=== PATIENT | female | born 1970 | race Caucasian/White ===

== ENCOUNTER → 2020-09-03 01:18 | Outpatient (CLI) | payer OTHER, SELFPAY ==
[2020-09-03 19:37] LABS: SARS-CoV-2 RNA PCR Negative
== END ==
PROVIDERS: Visit Provider Obstetrics & Gynecology
DX: Z01.812 Encounter for preprocedural laboratory examination (principal); Z20.822 Contact with and (suspected) exposure to COVID-19
CPT/HCPCS: C9803; U0003; U0005

== ENCOUNTER 2020-09-07 13:39 | Inpatient (IN) | payer OTHER, SELFPAY ==
[2020-08-26 14:00] VITALS: BMI 30.5
--- NOTE | 2020-09-06 22:41 | PM.IMHP ---
H&P: HPI History of Present Illness Date/Time: She was seen in April for pap smear and on exam her uterus and ovaries palpated enlarged. Subsqwent ultrasound was ordered. She was informed that the ultrasound showed multicystic growths in the adnexa. She had a subsequent MRI to better delinieate the cysts. She also had a ca125 which was normal. The MRI showed that the growths are mostly large cyst 6.7 cm on right and 5.9 cm on the left. The is a smaller simple appearing cyst 2.3 cm that has a nodule in the center. I explained to her that it looks like large ovarian cyst or could also be paratubal cyst. Usually if the cyst were malignant you would expect the Ca125 level to be higher. A normal ca125 level does not guarantee that the growth is not cancerous. The only definitive way to find out is to remove the cyst through laparoscopy or laparotomy. She was informed that since they appear benign she does have the option of taking a progesterone only control pill which may help to shrink the cyst. This is usually given for 6-8 weeks and if no change in cyst then recommended for surgical removal. This may also decrease menstrual flow. She has not had intermenstrual bleeding. She was informed the cyst is the cause of the the pains she was having in the lower abdomen. Discussed diagnostic laparoscopy and risk and benefits which is her option also versus trying control pills for six weeks and then repeating ultrasound and if not resolved or improving then proceed with laparoscopy. She opted to try control pills. She took Slynd for several packs and repeat ultrasound was performed. The cyst were unchanged. She was recommend for laparoscopic removal. She is aware that it looks like ovaries consist mostly of the cyst and unlikely would be able to save the ovaries. She does not want the chance of ovarian cyst returning and since she is premenopausal she desires both ovaries to be removed. She was made aware of removing both ovaries may also decrease future risk of ovarian cancer and she desires removal of both fallopian tubes also. She is aware if any malignant changes with subsequent pathology that she will need further treatment. Chief Complaint: Bilateral ovarian cyst. Review of Systems Review of Systems: All systems reviewed & are unremarkable except as noted in HPI and below Cardiovascular: Cardiovascular: Reports no additional cardiovascular complaints, Denies chest pain and Denies dyspnea Respiratory: Respiratory: Reports no additional respiratory complaints and Denies dyspnea Gastrointestinal: Gastrointestinal: Reports abdominal pain, Denies change in bowel habits, Denies diarrhea, Denies nausea and Denies vomiting Genitourinary: Genitourinary: Reports pelvic pain Musculoskeletal: Musculoskeletal: Reports back pain Integumentary/Breasts: Skin/Breast: Reports system reviewed and no additional complaints, except as docu Neurologic: Reports system reviewed and no additional complaints, except as documented PMFSH Past Medical History Medical History Hypertension Vaginal delivery x3 Surgical History Surgical History History of cholecystectomy [place] teeth removed Family History Family History Mother Hypertension Father Family history of diabetes mellitus in first degree relative Family history of coronary artery disease Daughter Autism Social History Social History Smoking packs per day: 0.5 Smoking cigarettes per day: 10.0 Years smoked: 15 Smoking pack-years: 7.50 Smoking status: Former smoker Tobacco type: cigarettes and e-cigarettes/vaping Second hand tobacco smoke exposure: No Additional smoking assessment comments: CIGARETTES - QUIT 04/01/10, VAPING QUIT 05/30/20 Alcohol intake: current
[2020-09-07] VITALS (19 sets, daily range): BP systolic 89–135; BP diastolic 47–87; PULSE 72–82; RESP 14–20; TEMP 36.1–37.1; O2SAT 94–100
--- NOTE | 2020-09-07 07:22 | P.PNAN_ITS ---
Anes - Initial Pre Proc Eval Procedure: Operation Date: 09/07/20 09:00 Proposed Procedures p Laparoscopic Bilateral Salpingo Oophorectomy - Ethan Waterman MD Date/Time: 09/07/20 07:22 Surgeon: Ethan Waterman MD Pre Op Diagnosis: bilateral adnexal cyst Patient Data Age: 49 Gender: F Height: 5 ft 7 in Weight: 88.45 kg Allergies Allergy/AdvReac Type Severity Reaction Status Date / Time No Known Allergies Allergy Mild Verified 08/26/20 13:58 Home Medications Medication Instructions Recorded Confirmed Type cholecalciferol (vitamin D3) 10 10 mcg PO DAILY 04/21/20 08/26/20 History mcg (400 unit) capsule coenzyme Q10 75 mg capsule 75 mg PO DAILY 04/21/20 08/26/20 History escitalopram oxalate 20 mg tablet 20 mg PO DAILY 04/21/20 08/26/20 History hydrochlorothiazide 12.5 mg capsule 12.5 mg PO DAILY 04/21/20 08/26/20 History lisinopril 5 mg tablet 5 mg PO DAILY 04/21/20 08/26/20 History multivitamin,oi-rvuo-qnngcwqs 1 tablet PO DAILY 04/21/20 08/26/20 History Patient hx anesthesia problems: post op nausea/vomiting Family hx anesthesia problems: none PMFSH Past Medical History Medical History Anxiety Depression Hypertension Vaginal delivery x3 Surgical History Surgical History History of cholecystectomy [place] teeth removed Family History Family History Mother Hypertension Father Family history of diabetes mellitus in first degree relative Family history of coronary artery disease Daughter Autism Social History Social History Smoking packs per day: 0.5 Smoking cigarettes per day: 10.0 Years smoked: 15 Smoking pack-years: 7.50 Smoking status: Current every day smoker Tobacco type: e-cigarettes/vaping Second hand tobacco smoke exposure: No Additional smoking assessment comments: CIGARETTES - QUIT 04/01/10, VAPING QUIT 05/30/20 Alcohol intake: current Alcohol use details: RARE Substance use: never Substance use type: does not use Living arrangements: with family Spiritual care concerns: No Anes - Eval Final PreProcedure Day of Procedure 09/07/20 07:22 Patient weight: obese Heart: regular rate and rhythm Lungs: decreased breath sounds Airway: Mallampati scale class II Neurological: alert and oriented Last oral intake: >/= 8 hours ASA classification: III Emergent: no Anesthetic plan: proceed Anesthesia type and monitoring: general ETT and standard monitoring Informed Consent: The patient's anesthetic plan and its attendant risks and benefits were discussed with the patient/family/POA. Questions were solicited and answers provided to the satisfaction of the patient/family/POA.
[2020-09-07] MEDS: ACETAMINOPHEN 500 MG TABLET 1000 MG PO (08:07)
[2020-09-07] MEDS: SCOPOLAMINE 1.5 MG PATCH TRANSDERM (08:09)
--- NOTE | 2020-09-07 08:09 | WPDHPUPDATE1 ---
History and Physical Update Update Date/Time: 09/07/20 08:09 History and Physical has been reviewed, including an updated exam of the patient. There are NO changes in the patient's condition. Risks, benefits, and alternatives have been discussed and questions answered. Patient agrees to proceed with procedure.
[2020-09-07] MEDS: LACTATED RINGERS 1,000 ML 30 ML IV CONT ×3 (08:10→12:31)
[2020-09-07] MEDS: KETOROLAC 15 MG/ML VIAL (*BKC) IV PUSH (08:11)
[2020-09-07] MEDS: ceFAZolin SODIUM 1 GM VIAL 2 GM IV PUSH (08:40)
[2020-09-07] MEDS: BUPIVACAINE HCL 0.5% PF 30 ML VIAL 10 ML INFILTRATE (08:47)
--- NOTE | 2020-09-07 09:18 | SUR.OPER ---
Laparoscopic to open laparotomy 09
--- NOTE | 2020-09-07 11:03 | SUR.PREOP ---
Addendum entered by Sherri Alatorre RN 09/07/20 11:07: DISREGARD NOTE---ENTERED IN ERROR ON WRONG PT. Original Note: 1045-PT AND MOM AWARE SURGEON DELAYS SELF WITH PREVIOUS CASE-UNDETERMINED AMOUNT OF TIME NO LESS THAN 45-60 MINUTES. PT AWARE TO [facility] STAFF FOR ANY NEEDS INCLUDING MEDICATION FOR ANXIETY-DENIES NEED AT THIS TIME. 1050-REPORT GIVEN TO Michael CISNEROS RN.
[2020-09-07 11:05] LABS: Hematocrit 35.5 % (37.0-47.0); Hemoglobin 11.3 g/dL (12.0-15.0); Mean Corpuscular HGB Conc 31.8 g/dl (32-36); Mean Corpuscular Volume 87.9 fl (80-100); Mean Platelet Volume 10.2 fl (7.4-10.4); Platelet Count Result 252 k/mm3 (150-375); Red Blood Count 4.04 M/mm3 (4.2-5.4); Red Cell Distribution Width 14.1 % (11.5-14.5); White Blood Count 21.4 K/mm3 (4.5-10.0)
--- NOTE | 2020-09-07 11:11 | SUR.OPER ---
See anesthesia chart for change in left arm abduction intraop - aware patient had preexisting left shoulder soreness
[2020-09-07 11:16] LABS: INR 1.4; Prothrombin Time 17.8 Seconds (11.1-14.7)
[2020-09-07 11:17] LABS: Partial Thromboplastin Time 36.5 SECONDS (22.3-36.8)
[2020-09-07] MEDS: METHYLENE BLUE 0.5% INJ 10 ML AMPULE 5 ML IRRIGATION (11:54)
--- NOTE | 2020-09-07 12:25 | W.PM.PROC2 ---
Procedure Note - Detailed Date of Procedure 09/08/20 Pre-op Diagnosis 1.bilateral adnexal cyst 2.Pelvic pain. Post-op Diagnosis other (1. Pelvic adhesive disease Severe 2. Probable endometriosis.) Procedure Performed 1. Diagnostic laparoscopy 2. Abdominal supracervicalhysterectomy with bilateral salpingo oophorectomy with removal of adnexal cyst which comprised what looked like endometriomas on both sides and also a right paratubal cyst. 3. Lysis of adhesions 4. Cystoscopy Surgeon Ethan Waterman MD [employer] Dr. Bianca Stanley Anesthesia general Indications patient with a history of complex ovarian cyst that were present on ultrasound in April and did not resolve with control pills. She also has pelvic pain that did improve on the control pills. Patient was recommended for removal of the complex cyst and since she is in the menopause range she did not want the possibility of any type this is recurring and wanted both her ovaries removed at the same time. She was also informed of decreased risk of ovarian cancer when the fallopian tubes tubes are removed. Findings on laparoscopy the right and left ovary were severely adhesed to the uterus on both sides and also adhesed to the rectal area. There were multiple what appeared to be paratubal cyst on the right side. The left ovary was enlarged. The left ovary was entered during the dissection and there was noted to be a large amount of dark chocolate fluid this was also seen on the right ovary with the lysis of adhesions from the uterus. Description of Procedure after informed consent was obtained patient was taken to the operating room and general endotracheal anesthesia was administered she was placed in low lithotomy position. An exam under anesthesia was performed there was bilateral adnexal fullness. She was prepped and draped in sterile fashion. Attention was turned to the vagina speculum was inserted single-tooth tenaculum placed on the anterior lip of the cervix the os was mildly scarred. The acorn uterine manipulator was inserted into the cervical canal. The attention was then turned to the abdomen and a vertical skin incision was made at the umbilicus a Veress needle was inserted confirmation into the abdomen was obtained with free flow of fluid through the Veress needle and normal peritoneal pressures. A pneumoperitoneum of 15 mm per mercury was obtained. She was placed in Trendelenburg position. Attention was turned to the left side of the abdomen 5 cc of 1% lidocaine was injected at the site in abdomen and a 5 mm port was inserted under laparoscopic visualization. Attention was turned to the right side of the abdomen and 1% lidocaine was injected at the subcutaneous tissue and a 10 mm port was inserted under laparoscopic visualization. The pelvic organs were visualized. The left ovary was enlarged and the right ovary was adhesed to the right uterus. The left ovary had some adhesions to the lower colon. The uterus appeared normal. The adhesions were densely adhered to the surrounding tissue and therefore the decision was made to do a laparotomy and removal of the adnexa. The laparoscoped was removed and the ports were removed. Patient was taken out of Trendelenburg position a Pfannenstiel skin incision was made with the scalpel the subcutaneous tissue was dissected down with cautery to the fascia fascia was incised in the midline and extended bilaterally with Willson scissors fascia was from rectus muscle superiorly and inferiorly bluntly and sharply. The midline was identified and entered bluntly the pelvic organs were visualized. The laps were placed on the muscle bellies and the intestines were packed out of the sidewall with laps a Dorsey for retractor was then placed. And A no other lap was placed in to retract the middle intestinal tissue. Attention was turned to the right ovary and the dense adhesions to the uterus and the colon were gently lysed. She di
[2020-09-07] MEDS: fentaNYL CITRATE INJ (*CRX) 100 MCG/2 ML VIAL 25 MCG IV PUSH ×8 (12:45→13:47)
[2020-09-07] MEDS: DEXTROSE 5%/0.45% SOD CHL 1,000 ML 125 ML IV CONT ×2 (15:05→23:15)
[2020-09-07] MEDS: MORPHINE SULFATE (*CRX) 4 MG/ML INJ IV PUSH (15:12)
[2020-09-07] MEDS: FENTANYL 600MCG/NS30MLPCA(*CRX 600 MCG/30 ML PCA.VIAL IV CONT (15:25)
--- NOTE | 2020-09-07 15:44 | OBPPTRN ---
Patient transferred to post room #289 via bed. Oriented to unit, room, information board, admission packet and security measures. Patient verbalizes understanding.
[2020-09-07 17:59] LABS: Hemoglobin 10.9 g/dL (12.0-15.0); Mean Corpuscular Hemoglobin 28.5 pg (26-34); Mean Corpuscular Volume 86.2 fl (80-100); Mean Platelet Volume 10.2 fl (7.4-10.4); Platelet Count Result 252 k/mm3 (150-375); Red Blood Count 3.83 M/mm3 (4.2-5.4); Red Cell Distribution Width 14.2 % (11.5-14.5); White Blood Count 24.3 K/mm3 (4.5-10.0)
[2020-09-08] VITALS (7 sets, daily range): BP systolic 98–115; BP diastolic 54–64; PULSE 66–87; RESP 16–20; TEMP 36.7–36.9; O2SAT 98–100
[2020-09-08 05:45] LABS: Basophils Percent Auto 0.2 % (0.2-1.2); Hematocrit 28.6 % (37.0-47.0); Hemoglobin 9.2 g/dL (12.0-15.0); Immature Granulocyte Percent A 0.5 % (0-0.5); Lymphocytes Absolute Auto 1.75 K/mm3 (0.9-3.2); Lymphocytes Percent Auto 9.4 % (18.3-44.2); Mean Corpuscular HGB Conc 32.2 g/dl (32-36); Mean Corpuscular Hemoglobin 28.5 pg (26-34); Mean Corpuscular Volume 88.5 fl (80-100); Mean Platelet Volume 10.4 fl (7.4-10.4); Monocytes Absolute Auto 1.1 K/mm3 (0.1-0.6); Monocytes Percent Auto 6.1 % (2.6-8.5); Neutrophils Absolute Auto 15.6 K/mm3 (1.3-6.7); Neutrophils Percent Auto 83.8 % (45.5-73.1); Platelet Count Result 233 k/mm3 (150-375); Red Blood Count 3.23 M/mm3 (4.2-5.4); Red Cell Distribution Width 14.5 % (11.5-14.5); White Blood Count 18.6 K/mm3 (4.5-10.0)
[2020-09-08 05:56] LABS: Anion Gap 7 mmol/L (8-16); Blood Urea Nitrogen 8 mg/dL (7-17); Calcium 7.9 mg/dL (8.4-10.2); Carbon Dioxide 25 mmol/L (22-30); Chloride 104 mmol/L (98-107); Estimated CRCL calculation 109 ml/min; Estimated Glomerular Filt Rate > 60; Glucose 135 mg/dL (65-105); Potassium 3.6 mmol/L (3.4-5.0); Sodium 136 mmol/L (137-145)
--- NOTE | 2020-09-08 07:37 | WPDANESPN ---
Anes - Prog Note Post-Op Date/Time: 09/08/20 07:37 Cardiovascular status: normal Respiratory status: normal Airway patency: baseline Mental status: baseline Post-Op hydration status: normal Vital Signs: Last Vital Signs Temp 98.1 F 09/08/20 03:40 Pulse 74 09/08/20 03:40 Resp 16 09/08/20 05:30 BP 99/58 L 09/08/20 03:40 Pulse Ox 98 09/08/20 05:30 Pain Score (VAS): 10 I/O: Intake & Output 09/07/20 09/07/20 09/08/20 15:59 23:59 07:59 Intake Total 3700 1150 166.65 Output Total 385 250 475 Balance 3315 900 -308.35 Laboratory Tests 09/08/20 05:25 09/08/20 05:25 09/07/20 09/07/20 09/07/20 10:45 10:45 10:45 WBC 21.4 H RBC 4.04 L Hgb 11.3 L Hct 35.5 L MCV 87.9 MCH 28.0 MCHC 31.8 L RDW 14.1 Plt Count 252 MPV 10.2 Immature Gran % (Auto) Neut % (Auto) Lymph % (Auto) [place] % (Auto) Eos % (Auto) Baso % (Auto) Lymph # (Auto) [place] # (Auto) Eos # (Auto) Baso # (Auto) Abs Immat Gran (auto) Absolute Neuts (auto) Absolute Nucleated RBC Nucleated RBC % PT 17.8 H INR 1.4 APTT 36.5 Sodium Potassium Chloride Carbon Dioxide Anion Gap BUN Creatinine Estim Creat Clear Calc Estimated GFR Glucose Calcium Blood Type O Positive Antibody Screen Negative 09/07/20 09/08/20 09/08/20 17:35 05:25 05:25 WBC 24.3 H 18.6 H RBC 3.83 L 3.23 L Hgb 10.9 L 9.2 L Hct 33.0 L 28.6 L MCV 86.2 88.5 MCH 28.5 28.5 MCHC 33.0 32.2 RDW 14.2 14.5 Plt Count 252 233 MPV 10.2 10.4 Immature Gran % (Auto) 0.5 Neut % (Auto) 83.8 H Lymph % (Auto) 9.4 L [place] % (Auto) 6.1 Eos % (Auto) 0.0 Baso % (Auto) 0.2 Lymph # (Auto) 1.75 [place] # (Auto) 1.1 H Eos # (Auto) 0.0 Baso # (Auto) 0.0 Abs Immat Gran (auto) 0.10 H Absolute Neuts (auto) 15.6 H Absolute Nucleated RBC 0.0 Nucleated RBC % 0.0 PT INR APTT Sodium 136 L Potassium 3.6 Chloride 104 Carbon Dioxide 25 Anion Gap 7 L BUN 8 Creatinine 0.60 L Estim Creat Clear Calc 109 Estimated GFR > 60 Glucose 135 H Calcium 7.9 L Blood Type Antibody Screen Post-procedural complaints: none Patient Feedback: Patient satisfied with anesthetic care.
--- NOTE | 2020-09-08 09:33 | PM.GYNPNOP ---
LABORATORY EQUIPMENT CLEANER - A/P Postoperative Procedures: Procedures Operation Date: 09/07/20 09:00 Actual Procedure Side Surgeon p Diagnostic Laparoscopy ,Open Laparotomy with Supracervical Hysterectomy and Bilateral Salpingo Oophorectomy with Cystoscopy Bilateral Ethan Waterman MD Time Spent With Patient Time: Total time spent is greater than 50% in coordination of care (as documented) at patient's floor/unit and/or counseling patient: Time with patient: less than 15 minutes LABORATORY EQUIPMENT CLEANER- PN:Subj Post-Op Subjective Date/time seen: 09/07/20 1630 Patient alert. Pain controlled. Discussed her surgery with her and . Continue COMPOSITION TILE LAYER and post op care. LABORATORY EQUIPMENT CLEANER - PN: Obj Data Vital Signs Vital Signs: Vital Signs - 24 hr 09/07/20 12:18 09/07/20 12:30 09/07/20 12:45 Temperature 97.5 F L Pulse Rate 76 72 73 Respiratory Rate 14 14 14 Blood Pressure 95/50 L 89/47 L 104/54 L Pulse Oximetry 100 100 100 09/07/20 13:00 09/07/20 13:15 09/07/20 13:30 Temperature Pulse Rate 73 76 76 Respiratory Rate 14 14 14 Blood Pressure 93/56 L 99/56 L 100/58 L Pulse Oximetry 98 94 96 09/07/20 13:45 09/07/20 14:00 09/07/20 14:15 Temperature 97.7 F Pulse Rate 76 81 82 Respiratory Rate 14 14 14 Blood Pressure 100/65 93/52 L 96/58 L Pulse Oximetry 95 97 97 09/07/20 14:25 09/07/20 14:30 09/07/20 15:25 Temperature 97.9 F Pulse Rate 80 Respiratory Rate 18 18 Blood Pressure 104/63 Pulse Oximetry 98 98 98 09/07/20 16:30 09/07/20 17:30 09/07/20 18:30 Temperature Pulse Rate Respiratory Rate 16 16 16 Blood Pressure Pulse Oximetry 96 98 97 09/07/20 20:00 09/07/20 20:30 09/07/20 22:00 Temperature 98.7 F Pulse Rate 81 Respiratory Rate 16 16 16 Blood Pressure 100/57 L Pulse Oximetry 97 97 98 09/08/20 00:00 09/08/20 02:00 09/08/20 03:40 Temperature 98.4 F 98.1 F Pulse Rate 73 74 Respiratory Rate 16 16 16 Blood Pressure 98/57 L 99/58 L Pulse Oximetry 100 98 98 09/08/20 05:30 Temperature Pulse Rate Respiratory Rate 16 Blood Pressure Pulse Oximetry 98 Intake/Output Intake/Output: Intake & Output 09/05/20 09/06/20 09/07/20 09/08/20 23:59 23:59 23:59 23:59 Intake Total 4850 166.65 Output Total 635 475 Balance 4215 -308.35 Meds/Results Medications: Active Medications Generic Name Dose Route Start Last Admin Trade Name Freq PRN Reason Stop Dose Admin Hydrocodone Bitart/Acetaminophen 2 tab 09/08/20 07:56 Hydrocodone/Acetaminophen (*Crx) 5-325 Mg Tablet PO Q4H PRN Pain Rated 4-6 Dextrose/Sodium Chloride 1,000 mls @ 125 mls/hr 09/07/20 13:40 09/07/20 23:15 Dextrose 5% Sodium Chloride 0.45% IV CONT 125 mls/hr .Q8H TYSON Administration Acetaminophen 1,000 mg in 100 mls @ 400 mls/hr 09/07/20 18:00 09/08/20 08:13 Ofirmev 1,000 Mg Ivpb IVPB 09/08/20 18:01 400 mls/hr Q6H TYSON Administration Ibuprofen 600 mg 09/08/20 07:56 Ibuprofen 600 Mg Tablet PO Q6H PRN Cramping Morphine Sulfate 4 mg 09/07/20 14:58 09/07/20 15:12 Morphine Sulfate (*Crx) 4 Mg/Ml Inj IV PUSH 4 mg Q4H PRN Administration Pain Rated 7-10 Ondansetron HCl 4 mg 09/07/20 13:39 Ondansetron Inj 4 Mg/2 Ml Vial IV PUSH Q6H PRN Nausea Labs CBC & Chem 7: 09/08/20 05:25 09/08/20 05:25 Labs: Laboratory Results - last 24 hr 09/07/20 09/07/20 09/07/20 10:45 10:45 10:45 WBC 21.4 H RBC 4.04 L Hgb 11.3 L Hct 35.5 L MCV 87.9 MCH 28.0 MCHC 31.8 L RDW 14.1 Plt Count 252 MPV 10.2 Immature Gran % (Auto) Neut % (Auto) Lymph % (Auto) [place] % (Auto) Eos % (Auto) Baso % (Auto) Lymph # (Auto) [place] # (Auto) Eos # (Auto) Baso # (Auto) Abs Immat Gran (auto) Absolute Neuts (auto) Absolute Nucleated RBC Nucleated RBC % PT 17.8 H INR 1.4 APTT 36.5 Sodium Potassium Chloride Carbon Dioxide Anion Gap BUN Creati
--- NOTE | 2020-09-08 09:35 | PM.GYNPNOP ---
HEALTH OFFICER - A/P Assessment and plan (1) Status post hysterectomy with oophorectomy: Code(s): Z90.710 - Acquired absence of both cervix and uterus; Z90.721 - Acquired absence of ovaries, unilateral Status: Acute Assessment and Plan: POD1. She is doing well. Will increase diet to clears. Will DC [place]. Get up in chair and assit with ambulation. Start oral analgesia. Routine post op care. Postoperative Procedures: Procedures Operation Date: 09/07/20 09:00 Actual Procedure Side Surgeon p Diagnostic Laparoscopy ,Open Laparotomy with Supracervical Hysterectomy and Bilateral Salpingo Oophorectomy with Cystoscopy Bilateral Ethan Waterman MD Time Spent With Patient Time: Total time spent is greater than 50% in coordination of care (as documented) at patient's floor/unit and/or counseling patient: Time with patient: less than 15 minutes HEALTH OFFICER- PN:Subj Post-Op Subjective Date/time seen: 09/08/20 09:35 Interval history: She has set up in bed. She denies flatus. She has had a good pain control with the IV pain medicines. Has some reflux symptoms. No leg pain. No chest pain or SOB. She is tolerating ice chips and sips. Subjective: pain is well controlled Review of Systems Review of Systems: All systems reviewed & are unremarkable except as noted in HPI and below Cardiovascular: Cardiovascular: Reports no additional cardiovascular complaints Respiratory: Respiratory: Reports no additional respiratory complaints Gastrointestinal: Gastrointestinal: Reports belching, Denies nausea and Denies vomiting Genitourinary: Genitourinary: Reports no additional female genitourinary complaints Musculoskeletal: Musculoskeletal: Reports no additional musculoskeletal complaints Exam Const: General: comfortable and no acute distress Orientation/consciousness: oriented to person, oriented to place and oriented to time Eyes: General: appearance normal, both eyes and all related structures Resp: Auscultation: clear to auscultation bilaterally Cardio: Rate: regular rate Rhythm: regular rhythm GI: GI Palp: No Tenderness to palpation present (GI) Other: incisions intact clean and dry, +BS throughout, appropriate tenderness Neuro: General: oriented to person, oriented to place and oriented to time Extrem: General: no calf tenderness Psych: Mental Status: mental status grossly normal HEALTH OFFICER - PN: Obj Data Vital Signs Vital Signs: Vital Signs - 24 hr 09/07/20 12:18 09/07/20 12:30 09/07/20 12:45 Temperature 97.5 F L Pulse Rate 76 72 73 Respiratory Rate 14 14 14 Blood Pressure 95/50 L 89/47 L 104/54 L Pulse Oximetry 100 100 100 09/07/20 13:00 09/07/20 13:15 09/07/20 13:30 Temperature Pulse Rate 73 76 76 Respiratory Rate 14 14 14 Blood Pressure 93/56 L 99/56 L 100/58 L Pulse Oximetry 98 94 96 09/07/20 13:45 09/07/20 14:00 09/07/20 14:15 Temperature 97.7 F Pulse Rate 76 81 82 Respiratory Rate 14 14 14 Blood Pressure 100/65 93/52 L 96/58 L Pulse Oximetry 95 97 97 09/07/20 14:25 09/07/20 14:30 09/07/20 15:25 Temperature 97.9 F Pulse Rate 80 Respiratory Rate 18 18 Blood Pressure 104/63 Pulse Oximetry 98 98 98 09/07/20 16:30 09/07/20 17:30 09/07/20 18:30 Temperature Pulse Rate Respiratory Rate 16 16 16 Blood Pressure Pulse Oximetry 96 98 97 09/07/20 20:00 09/07/20 20:30 09/07/20 22:00 Temperature 98.7 F Pulse Rate 81 Respiratory Rate 16 16 16 Blood Pressure 100/57 L Pulse Oximetry 97 97 98 09/08/20 00:00 09/08/20 02:00 09/08/20 03:40 Temperature 98.4 F 98.1 F Pulse Rate 73 74 Respiratory Rate 16 16 16 Blood Pressure 98/57 L 99/58 L Pulse Oximetry 100 98 98 09/08/20 05:30 Temperature Pulse Rate Respiratory Rate 16 Blood Pressure Pulse Oximetry 98 Intake/Output Intake/Output: Intake & Output 09/05/20 09/06/20 09/07/20 09/08/20 23:59 23:59 23:59 23:59 Intake Total 4850 166.65 Output Total 635 475 Balance 4215 -308.35
[2020-09-08] MEDS: HYDROcodone/acetaminophen (*CRX) 5-325 MG TABLET 2 TAB PO ×3 (11:21→20:47)
[2020-09-08] MEDS: FAMOTIDINE 20 MG/2 ML VIAL IV PUSH (11:38)
[2020-09-08] MEDS: IBUPROFEN 600 MG TABLET PO ×2 (15:02→22:05)
[2020-09-08] MEDS: ESCITALOPRAM OXALATE 10 MG TABLET PO (20:47)
[2020-09-09] MEDS: HYDROcodone/acetaminophen (*CRX) 5-325 MG TABLET 2 TAB PO ×4 (00:50→13:11)
[2020-09-09] MEDS: IBUPROFEN 600 MG TABLET PO ×2 (04:52→13:11)
[2020-09-09 08:00] VITALS: BP 113/63; PULSE 72; RESP 18; TEMP 36.6
--- NOTE | 2020-09-09 11:09 | PM.GYNPNOP ---
[employer] - A/P Assessment and plan (1) Status post hysterectomy with oophorectomy: Code(s): Z90.710 - Acquired absence of both cervix and uterus; Z90.721 - Acquired absence of ovaries, unilateral Status: Acute Assessment and Plan: She is doing well. Discharge home today. Discharge precautions discussed. Postoperative Procedures: Procedures Operation Date: 09/07/20 09:00 Actual Procedure Side Surgeon p Diagnostic Laparoscopy ,Open Laparotomy with Supracervical Hysterectomy and Bilateral Salpingo Oophorectomy with Cystoscopy Bilateral Ethan Waterman MD Time Spent With Patient Time: Total time spent is greater than 50% in coordination of care (as documented) at patient's floor/unit and/or counseling patient: Time with patient: less than 15 minutes [employer]- PN:Subj Post-Op Subjective Date/time seen: 09/09/20 11:09 Interval history: She reports adequate pain control. She is ambulating without problems. Tolerating regular food. Positive flatus. No leg pain or chest pain. Subjective: pain is well controlled and patient is tolerating oral intake Review of Systems Review of Systems: All systems reviewed & are unremarkable except as noted in HPI and below Cardiovascular: Cardiovascular: Reports no additional cardiovascular complaints Respiratory: Respiratory: Reports no additional respiratory complaints Gastrointestinal: Gastrointestinal: Denies nausea and Denies vomiting Genitourinary: Genitourinary: Reports no additional female genitourinary complaints Musculoskeletal: Musculoskeletal: Reports no additional musculoskeletal complaints Exam Const: General: comfortable and no acute distress Orientation/consciousness: oriented to person, oriented to place and oriented to time Resp: Effort & Inspection: normal respiratory effort Cardio: Rhythm: regular rhythm GI: GI Palp: Yes Soft to palpation and Yes Tenderness to palpation present (GI) Other: minimal tenderness on palpation Neuro: General: oriented to person, oriented to place and oriented to time Extrem: General: no calf tenderness Psych: Mental Status: mental status grossly normal [employer] - PN: Obj Data Vital Signs Vital Signs: Vital Signs - 24 hr 09/08/20 16:30 09/08/20 20:00 09/09/20 08:00 Temperature 98.2 F 98.4 F 97.8 F Pulse Rate 87 66 72 Respiratory Rate 18 16 18 Blood Pressure 115/61 112/54 L 113/63 Pulse Oximetry 99 Intake/Output Intake/Output: Intake & Output 09/06/20 09/07/20 09/08/20/11/21 23:59 23:59 23:59 23:59 Intake Total 4850 1166.65 Output Total 635 2275 50 Balance 4215 -1108.35 -50 Meds/Results Medications: Active Medications Generic Name Dose Route Start Last Admin Trade Name Freq PRN Reason Stop Dose Admin Hydrocodone Bitart/Acetaminophen 2 tab 09/08/20 07:56 09/09/20 09:39 Hydrocodone/Acetaminophen (*Crx) 5-325 Mg Tablet PO 1 tab Q4H PRN Administration Pain Rated 4-6 Escitalopram Oxalate 10 mg 09/08/20 21:00 09/08/20 20:47 Escitalopram Oxalate 10 Mg Tablet PO 10 mg DAILY TYSON Administration Ibuprofen 600 mg 09/08/20 07:56 09/09/20 04:52 Ibuprofen 600 Mg Tablet PO 600 mg Q6H PRN Administration Cramping Morphine Sulfate 4 mg 09/07/20 14:58 09/07/20 15:12 Morphine Sulfate (*Crx) 4 Mg/Ml Inj IV PUSH 4 mg Q4H PRN Administration Pain Rated 7-10 Ondansetron HCl 4 mg 09/07/20 13:39 Ondansetron Inj 4 Mg/2 Ml Vial IV PUSH Q6H PRN Nausea Labs CBC & Chem 7: 09/08/20 05:25 09/08/20 05:25
--- NOTE | 2020-09-09 11:26 | PM.DS ---
DS: Admitting Diagnosis Admitting Diagnosis Admitting Diagnosis: 1. Persistent symptomatic ovarian cyst DS: Discharge Diagnosis Discharge Diagnosis (1) Ovarian cyst: Code(s): N83.209 - Unspecified ovarian cyst, unspecified side Status: Acute (2) Pelvic adhesive disease: Code(s): N73.6 - Female pelvic peritoneal adhesions (postinfective) Status: Acute (3) Postoperative anemia: Code(s): D64.9 - Anemia, unspecified Status: Acute DS: Summary Hospital Course Reason for hospitalization: Surgery for symptomatic bilateral ovarian cyst with pain and no resolution with trial of control pills. Hospital Course: Patient was admitted on September 07 for planned bilateral salpingo-oophorectomy for persistent ovarian cysts causing pain resistant to change with oral contraceptive pills. She underwent a diagnostic laparoscopy at the time she was known to have severe adhesions of the ovaries fallopian tubes to the uterus and colon and sidewall. A laparotomy was performed and she had a supracervical hysterectomy and bilateral salpingo-oophorectomy. Her EBL was estimated at 1 L though some of this could have been the large amount of either old blood or endometriosis material in the uterus. Her hemoglobin during surgery was 11 in the postop hemoglobin was 9.8. Patient was not symptomatic. Postop day 1. Patient was started on liquids and did well had positive flatus throughout the day tolerated regular food. She tolerated oral pain medicine and was ambulating without any problems on postop day 2 patient was doing well and tolerating regular food adequate pain control and ambulating and was discharged to home. She was given discharge instructions she was given [place] for pain and Toradol. She was instructed to hold on taking her blood pressure medicines which were held in the hospital due to lower blood pressures. She was instructed to take her blood pressures at home and when they started getting 130s over 80s to take the blood pressure medicine. She is instructed to take [id number] iron supplement and also to instructed to take MiraLax. Pelvic rest no driving no straining. She is to follow up with me on her appointment . Status at Discharge Functional status at discharge: independent ambulation Time Spent with Patient Time attestation: Total time spent providing and/or coordinating discharge services: Time spent: Less than 30 minutes Exam Const: General: comfortable and no acute distress Eyes: General: appearance normal, both eyes and all related structures Chest: Chest palpation & inspection: normal inspection of the chest Resp: Effort & Inspection: normal respiratory effort GI: Inspection: normal to inspection and other (incisions clean dry and intact) Skin: General skin exam: normal color Extrem: General: normal to inspection and no calf tenderness Psych: Appearance: grossly normal DS: Data Data Completed and Pending Pending studies at discharge: Pending at discharge 09/07/20 11:23 Surgical [PTH] Routine Discharge Plan Discharge Attending physician on discharge: Ethan Waterman Consulting providers: Shemar Wei Discharging Clinician: Ethan Waterman Anticipated Discharge Date/Time: 09/09/20 11:16 Patient Disposition: Home, Self-Care Activity: may shower, no straining, no driving and pelvic rest Diet: low sodium Discharge Instructions: No lifting. Take prescription pain medication for breakthrough pain. Take Toradol for five days then may take Ibuprofen 600mg every six hours as needed for pain. Take Miralex daily until not taking the [place] pain medication. Call for fever, vaginal bleeding, persistent nausea vomiting. Take blood pressures at home daily. May resume blood pressure medication when blood pressures 130s/80s. Take a daily iron supplement, SloFe which is over the counter. Recommend daily multivitamin. Some Complications to [place]
--- NOTE | 2020-09-09 11:51 | PC.NURSE ---
Discharge instructions given to pt. including when to see Dr. Waterman for follow up visit. Pt. verbalized understanding. No questons or concerns verbalized. Very pleasant and cooperative. at side. Discharge instructions signed.
== END 2020-09-09 13:15 | disposition home or self-care (01) | DRG 742 ==
LOC: ANHOB2 14:43
PROVIDERS: Admitting Provider Obstetrics & Gynecology; PCP Registered Nurse; Visit Provider Obstetrics & Gynecology
PROC: (CPT 49320; principal; 2020-09-07 09:00)
DX: N83.202 Unspecified ovarian cyst, left side (principal); D62 Acute posthemorrhagic anemia; N83.201 Unspecified ovarian cyst, right side; N73.6 Female pelvic peritoneal adhesions (postinfective); I10 Essential (primary) hypertension; F41.9 Anxiety disorder, unspecified; F32.9 Major depressive disorder, single episode, unspecified; E66.9 Obesity, unspecified; Z68.31 Body mass index [BMI] 31.0-31.9, adult; Z90.49 Acquired absence of other specified parts of digestive tract; Z87.891 Personal history of nicotine dependence
CPT/HCPCS: 36415; 80048; 85025; 85027; 85610; 85730; 86850; 86900; 86901; 88307; A9270; J0131; J0330; J0690; J1100; J1170; J1200; J1885; J2250; J2270; J2370; J2405; J2704; J2710; J3010; J7030; J7120; Q9968

== ENCOUNTER 2021-08-21 19:16 | Emergency (ER) | payer OTHER, SELFPAY ==
[2021-08-21] VITALS (14 sets, daily range): BP systolic 136–179; BP diastolic 71–103; PULSE 64–78; RESP 16–20; TEMP 36.5–36.8; O2SAT 96–100
--- NOTE | ~2021-08-21 | CT_ITS ---
EXAMINATION: CT abdomen pelvis w con DATE: 08/21/2021 20:51 INDICATION: abd pain, nausea TECHNIQUE: Computed tomography (CT) of the abdomen and pelvis was performed with 75 mL Omnipaque 300 intravenous contrast. Automated exposure control and iterative reconstruction technique were employed . The dose-length product was 768.84 mGy-cm. COMPARISON: None FINDINGS: Lower thorax: Unremarkable Liver: Diffusely low density. Biliary/Gallbladder: Gallbladder is absent. No bile duct dilation. Pancreas: No mass or duct dilation. Spleen: Normal. Adrenals:No mass. Kidneys: Simple right midpole cyst and nonobstructive punctate calculi. No hydronephrosis GI tract: No small or large bowel dilation. Normal appendix. Diverticulosis without diverticulitis. Mesentery/Peritoneum: No ascites, mass, or free air. Retroperitoneum: No mass. Pelvis: Pelvic organs are within normal limits. Soft Tissues: Soft tissues and body wall unremarkable. Bones: No acute osseous finding. IMPRESSION: Steatosis. No acute abdominopelvic process. Reviewed, dictated and finalized at location K.
--- NOTE | 2021-08-21 19:43 | ED.ABDPAIN ---
HPI - Abdominal Pain General Chief Complaint: Abdominal Pain Stated Complaint: abd pain Time Seen by Provider: 08/21/21 19:26 History of Present Illness HPI narrative: Patient is a 50-year-old female with a history of hypertension, hysterectomy, cholecystectomy, here for evaluation of lower abdominal pain for the past day. Patient states the pain is severe, causing her to double over in discomfort. It is intermittent in nature, and is not present currently. Denies pain after eating. She denies relief after heating pads and Tylenol. Reports nausea, but no vomiting. She does note a similar pain about a month ago, but it was much more mild and resolved without intervention. No diarrhea, constipation, blood in her stools, dysuria, hematuria, vaginal discharge, fevers. She has never had a colonoscopy, but she does report she had a negative FOBT test. Related Data Home Medications Medication Instructions Recorded Confirmed cholecalciferol (vitamin D3) 10 10 mcg PO DAILY 04/21/20 05/05/21 mcg (400 unit) capsule coenzyme Q10 75 mg capsule 75 mg PO DAILY 04/21/20 05/05/21 escitalopram oxalate 20 mg tablet 20 mg PO DAILY 04/21/20 05/05/21 hydrochlorothiazide 12.5 mg capsule 12.5 mg PO DAILY 04/21/20 05/05/21 lisinopril 5 mg tablet 5 mg PO DAILY 04/21/20 05/05/21 multivitamin,ny-hatj-winoulis 1 tablet PO DAILY 04/21/20 05/05/21 Allergies Allergy/AdvReac Type Severity Reaction Status Date / Time No Known Allergies Allergy Mild Verified 08/21/21 19:21 Review of Systems Review of Systems: Gen: Denies fevers or chills Eyes: Denies eye pain or visual change ENT: Denies congestion Respiratory: Denies shortness of breath or cough CV: Denies chest pain or palpitations GI: Reports abdominal pain and nausea. No emesis or diarrhea denies burning, urgency, frequency or hematuria Musculoskeletal: Denies back pain or muscle pain Neuro: Denies numbness, tingling, weakness or focal weakness Skin: Denies rash Except as documented, all other systems reviewed and negative All systems reviewed & are unremarkable except as noted in HPI and below PMFSH Past Medical History Medical History Anxiety Depression Hypertension Vaginal delivery x3 Surgical History Surgical History History of bilateral salpingo-oophorectomy 09/07/20 History of cholecystectomy History of cystoscopy 09/07/20 History of hysterectomy, supracervical 09/07/20, abdominal hysterectomy with removal of adnexal cyst for bilateral endometriomas and right paratubal cyst, lysis of adhesions History of laparoscopy 09/07/20, Diagnostic [place] teeth removed Family History Family History Mother Hypertension Father Family history of diabetes mellitus in first degree relative Family history of coronary artery disease Daughter Autism Social History Social History Smoking packs per day: 0.5 Smoking cigarettes per day: 10.0 Years smoked: 15 Smoking pack-years: 7.50 Smoking status: Former smoker (current vape smoker) Tobacco type: e-cigarettes/vaping Second hand tobacco smoke exposure: No Additional smoking assessment comments: CIGARETTES - QUIT 04/01/10, VAPING QUIT 05/30/20 Alcohol intake: current Alcohol use details: RARE Substance use: never Substance use type: does not use Spiritual care concerns: No Exam Narrative: APPEARANCE: No acute distress, nontoxic, resting in bed EYES: EOMI HEENT: Normocephalic, atraumatic, OMM RESPIRATORY: No respiratory distress Clear to auscultation bilaterally with no rhonchi wheezing or rales. CARDIOVASCULAR: Regular rate and rhythm without murmurs rubs or gallops. ABDOMINAL: Tender to palpation in suprapubic region. No CVA tenderness. Soft, nondistended, no rebound or guarding
[2021-08-21 20:00] LABS: Basophils Absolute Auto 0.1 K/mm3 (0.0-0.1); Basophils Percent Auto 0.4 % (0.2-1.2); Eosinophils Absolute Auto 0.8 K/mm3 (0-0.3); Eosinophils Percent Auto 5.7 % (0-4.4); Hematocrit 41.8 % (37.0-47.0); Hemoglobin 13.5 g/dL (12.0-15.0); Immature Granulocyte Absolute 0.04 K/mm3 (0.00-0.031); Immature Granulocyte Percent A 0.3 % (0-0.5); Lymphocytes Absolute Auto 2.27 K/mm3 (0.9-3.2); Mean Corpuscular HGB Conc 32.3 g/dl (32-36); Mean Corpuscular Hemoglobin 28.2 pg (26-34); Mean Corpuscular Volume 87.4 fl (80-100); Mean Platelet Volume 9.9 fl (7.4-10.4); Monocytes Absolute Auto 0.6 K/mm3 (0.1-0.6); Monocytes Percent Auto 4.8 % (2.6-8.5); Neutrophils Absolute Auto 9.6 K/mm3 (1.3-6.7); Neutrophils Percent Auto 71.8 % (45.5-73.1); Platelet Count Result 278 k/mm3 (150-375); Red Blood Count 4.78 M/mm3 (4.2-5.4); White Blood Count 13.4 K/mm3 (4.5-10.0)
[2021-08-21 20:11] LABS: Alanine Aminotransferase 31 U/L (6-35); Albumin Level 4.1 g/dL (3.5-5.1); Alkaline Phosphatase 74 U/L (38-126); Anion Gap 9 mmol/L (8-16); Aspartate Amino Transferase 34 U/L (14-36); Bilirubin,Total 0.2 mg/dL (0.2-1.3); Blood Urea Nitrogen 15 mg/dL (7-17); Carbon Dioxide 29 mmol/L (22-30); Chloride 103 mmol/L (98-107); Estimated CRCL calculation 94 ml/min; Estimated Glomerular Filt Rate > 60; Glucose 113 mg/dL (65-110); Lipase 57 U/L (23-300); Potassium 3.6 mmol/L (3.4-5.0); Sodium 141 mmol/L (137-145)
[2021-08-21] MEDS: SODIUM CHLORIDE 0.9% IV 1,000 ML 999 ML IV CONT (20:13)
--- NOTE | 2021-08-21 21:20 | PC.NURSE ---
urine preg canceled because pt has hyster 2 years ago
[2021-08-21 22:08] LABS: Appearance Urine Clear (Clear); Bilirubin Urine Negative (Negative); Color Urine Yellow (Yellow); Glucose Urine UA Negative (Negative); Ketones Urine Negative (Negative); Leukocyte Esterase Ur Negative LEU/UL (Negative); Nitrate Urine Negative (Negative); Protein Urine Negative (Negative); Urobilinogen Urine 0.2 mg/dL (<2.0)
[2021-08-21 22:14] LABS: Bacteria Urine Trace /hpf; RBC Urine 0-2 /hpf (0-2); Squamous Epithelial Cell Urine Rare /hpf (Few); WBC Urine 0-3 /hpf
[2021-08-21 22:25] LABS: Add Urine Microscopic? YES; Blood Urine Trace-Intact (Negative)
== END 2021-08-21 22:58 | disposition home or self-care (01) ==
PROVIDERS: Physician Assistant; Emergency Provider Emergency Medicine; PCP Registered Nurse
DX: R10.30 Lower abdominal pain, unspecified (principal); I10 Essential (primary) hypertension; F41.9 Anxiety disorder, unspecified; F32.A Depression, unspecified; Z87.891 Personal history of nicotine dependence
CPT/HCPCS: 36415; 74177; 80053; 81001; 83690; 85025; 96360; 99284; J7030; Q9967

== ENCOUNTER 2023-10-24 11:05 | Outpatient (CLI) | payer OTHER, SELFPAY ==
--- NOTE | ~2023-10-24 | MM_ITS ---
EXAMINATION: MM screening ioana BI w rajni HISTORY: Screening TECHNIQUE: Craniocaudal and mediolateral oblique 3-D tomosynthesis images were obtained and synthetic 2-D images were generated. CAD analysis was submitted and interpreted. COMPARISON: No prior mammogram is available for comparison at this institution. BREAST PARENCHYMAL COMPOSITION: There are scattered areas of fibroglandular density. FINDINGS: There is no evidence of suspicious mass, calcification, or architectural distortion to sugg est malignancy in either breast. There has been no suspicious interval change. IMPRESSION: 1. No mammographic evidence of malignancy. 2. Recommend routine screening mammography in one year. BI-RADS Category 1: Negative Reviewed, dictated and finalized at location B.
== END 2023-10-24 11:06 ==
PROVIDERS: PCP Nurse Practitioner Family; Visit Provider Nurse Practitioner Family
DX: Z12.31 Encounter for screening mammogram for malignant neoplasm of breast (principal)
CPT/HCPCS: 77063; 77067

== ENCOUNTER 2023-11-01 14:26 | Outpatient (CLI) | payer OTHER, SELFPAY ==
--- NOTE | ~2023-11-01 | DEXA_ITS ---
Bone Density Report Name: PUMA LUGO Age: 52 Sex: Female Ethnicity: White Date of : 1970 Indication: postmenopausal; screening for osteoporosis; height loss; hysterectomy; Referring Provider: REFUGIO BARAJAS Study: Bone densitometry was performed. Exam Date: November 01, 2023 Accession number: [id number] Bone Density: Region BMD T-score Z-score Classification AP Spine(L1-L4) 1.223 1.6 2.7 Normal Femoral Neck (Left) 0.894 0.4 1.4 Normal Total Hip (Left) 1.062 1.0 1.6 Normal Femoral Neck (Right) 0.852 0.0 1.1 Normal Total Hip (Right) 1.010 0.6 1.2 Normal Femoral Neck Mean 0.873 0.2 1.3 Normal Total Hip Mean 1.036 0.8 1.4 Normal World Health Organization criteria for BMD impression classify patients as: Normal (T-score at or above -1.0), Osteopenia (T-score between -1.0 and -2.5), or Osteoporosis (T-score at or below -2.5). 10-year Fracture Risk: FRAX not reported because: All T-scores for Spine Total, Hip Total, Femoral Neck at or above -1.0 Clinical Information Provided by Patient: Smokes Has used the following medications: HRT (i.e. estrogen/hormone therapy), Vitamin D, Calcium Has the following medical conditions: Hysterectomy Patient maximum height was 68 Menopause Age: 50 No regular weight bearing exercise Drinks caffeinated beverages Onset of menses at age 8 Number of children 2 Impression: The patient has normal bone mass. The patient has risk factors, including: smoking. Discussion: BONE DENSITY IS ABOVE THE MINIMUM DESIRABLE LEVEL AT ALL SKELETAL SITES TESTED. This patient?s bone mineral density is above the minimum desirable level (T-score -1.0 or better) at all sites measured. The patient should follow a healthful lifestyle (good nutrition with adequate calcium and vitamin D, and appropriate weight-bearing exercise). Follow-Up: Consider repeating this study in 5 years or sooner if there is some new clinical indication. Reported by: Dr. Martin Griffith on 11/01/2023 2:49:00 PM. Reviewed, dictated and finalized at location A. [facility]
== END 2023-11-01 14:27 | disposition home or self-care (01) ==
LOC: CHSIMG 14:28
PROVIDERS: PCP Nurse Practitioner Family; Visit Provider Nurse Practitioner Family
DX: Z78.0 Asymptomatic menopausal state (principal); R29.890 Loss of height
CPT/HCPCS: 77080

== ENCOUNTER 2024-03-27 14:41 | Emergency (ER) | payer OTHER, SELFPAY ==
[2024-03-27 15:06] VITALS: BP 125/73; PULSE 85; RESP 18; TEMP 37.3; O2SAT 98
--- NOTE | 2024-03-27 15:31 | ED_ITS ---
HPI - URI/Sore Throat General Chief Complaint: Upper Respiratory Infection Stated Complaint: Flu like symptoms Time Seen by Provider: 03/27/24 15:31 Source: patient, RN notes reviewed and old records reviewed Mode of arrival: ambulatory Limitations: no limitations History of Present Illness HPI Narrative: 53-year-old female presents to the [facility] with 2 day history of sore throat, body aches, fatigue, headache and cough. Has taken psych am, NyQuil and DayQuil. Onset (ago): day(s) (To) Related Data Home Medications ?Medication ?Instructions ?Recorded ?Confirmed ?Last Taken ?Type cholecalciferol (vitamin D3) 10 10 mcg PO DAILY 04/21/20 05/05/21 09/02/20 History mcg (400 unit) capsule coenzyme Q10 75 mg capsule (Ultra 75 mg PO DAILY 04/21/20 05/05/21 09/02/20 History CoQ10) escitalopram oxalate 20 mg tablet 20 mg PO DAILY 04/21/20 05/05/21 09/06/20 History hydrochlorothiazide 12.5 mg capsule 12.5 mg PO DAILY 04/21/20 05/05/21 09/06/20 History multivitamin,tm-xjtz-hbrlwrrl 1 tablet PO DAILY 04/21/20 05/05/21 09/02/20 History (Complete Multivitamin tablet) bupropion HCl 150 mg tablet,12 hr 150 mg PO DAILY 04/26/23 Unknown History sustained-release (Wellbutrin SR) lisinopril 20 mg tablet 20 mg PO DAILY 04/26/23 Unknown History Allergies Allergy/AdvReac Type Severity Reaction Status Date / Time No Known Allergies Allergy Mild Verified 04/26/23 13:11 Review of Systems Review of Systems: All systems reviewed & are unremarkable except as noted in HPI and below Constitutional: Constitutional: Reports as per HPI and Reports body ache(s) ENT: Reports as per HPI and Reports sore throat Cardiovascular: Cardiovascular: Reports no additional cardiovascular complaints, Denies chest pain and Denies dyspnea Respiratory: Respiratory: Reports as per HPI, Denies chest congestion, Reports cough and Denies dyspnea Musculoskeletal: Musculoskeletal: Reports no additional musculoskeletal complaints Integumentary/Breasts: Skin/Breast: Reports system reviewed and no additional complaints, except as docu PMFSH Past Medical History Medical History Depression Anxiety Vaginal delivery x3 Hypertension Surgical History Surgical History History of cystoscopy 09/07/20 History of bilateral salpingo-oophorectomy 09/07/20 History of laparoscopy 09/07/20, Diagnostic History of hysterectomy, supracervical 09/07/20, abdominal hysterectomy with removal of adnexal cyst for bilateral endometriomas and right paratubal cyst, lysis of adhesions History of cholecystectomy [place] teeth removed Family History Family History Mother Hypertension Father Family history of diabetes mellitus in first degree relative Family history of coronary artery disease Daughter Autism Social History Social History Smoking packs per day: 0.5 Smoking cigarettes per day: 10.0 Years smoked: 15 Smoking pack-years: 7.50 Smoking status: Former smoker (current vape smoker) Tobacco type: e-cigarettes/vaping Second hand tobacco smoke exposure: No Additional smoking assessment comments: CIGARETTES - QUIT 04/01/10, VAPING QUIT 05/30/20 Alcohol intake: current Alcohol use details: RARE Substance use: never Substance use type: does not use Do You Feel Safe in your Home?: Yes Lack of Transportation: YES Lack of Food: Never True Current Housing: I Have Housing Concerned About Future Housing: No Difficulty Paying Gas/Electric Bills: No Difficulty Paying for Meds: No Currently Unemployed: No Education: Bachelor's Degree Difficulty w/ Childcare or Family Care: No Living arrangements: with family Spiritual care concerns: No Comments At the time of my signature, I reviewed and agree with the nursing past medical, surgical, social, and family history. There is no relevant family history pertinent to the patient complaint. Exam Const: General: cooperative, healthy appearing, comfortable, no acute distress, well developed, alert and well nourished Nutritional Appearance: well nourished Orientation/consciousness: patient oriented x3 Limitations: no limitations HENMT: Head: normal to inspection Ears: hearing grossly normal bilaterally, external ears normal, TM's normal bilaterally and no periauricular adenopathy Face/Nose/Sinus: normal facial exam and face symmetric Face and sinus: normal facial exam and face symmetric Mouth: Yes Normal oral and palatal mucosa present, Yes lip normal, Yes tongue normal and Yes moist mucous membranes Throat: posterior oropharynx normal, uvula midline and no uvular edema Eyes: General: appearance normal, both eyes and all related structures Neck: Neck: normal visual inspection, full ROM, no lymphadenopathy and no meningeal signs Chest: Chest palpation & inspection: normal inspection of the chest Resp: Effort & Inspection: normal respiratory effort and able to speak in complete sentences Auscultation: clear to auscultation bilaterally, no crackles, no rales, no rhonchi and no wheezes Cardio: Rate: regular rate Skin: General skin exam: normal color and no rashes or lesions noted Neuro: General: patient oriented x3, gait normal, moves all extremities and no meningeal signs Cognition (Neuro): normal cognition Speech: normal speech Gait exam (Neuro): Normal gait present Extrem: General: normal to inspection, full ROM, capillary refill normal and normal gait Psych: Appearance: grossly normal and well kempt Mental Status: mental status grossly normal Speech and movement: Normal speech and movement present and Clear speech present Affect: normal affect Attitude: cooperative Course Course Level of Care: Express Care Visit Vital Signs Vital signs: Vital Signs Temperature 99.2 F 03/27/24 15:06 Pulse Rate 85 03/27/24 15:06 Respiratory Rate 18 03/27/24 15:06 Blood Pressure 125/73 03/27/24 15:06 Pulse Oximetry 98 03/27/24 15:06 Oxygen Delivery Room Air 03/27/24 15:06 Temperature 99.2 F 03/27/24 15:06 Pulse Rate 85 03/27/24 15:06 Respiratory Rate 18 03/27/24 15:06 Blood Pressure 125/73 03/27/24 15:06 Pulse Oximetry 98 03/27/24 15:06 Oxygen Delivery Room Air 03/27/24 15:06 Reviewed MDM - URI/Sore Throat MDM Narrative Medical decision making narrative: Patient sitting comfortably in exam. Nontoxic, vitals stable. Patient in no acute distress. Patient presents with 2 day history of body aches sore. Daughter is positive influenza. Patient is negative for flu, COVID, strep. Patient is appropriate for outpatient treatment and close follow-up of viral URI, concern for influenza. Discharge instructions reviewed with patient, as well as provided in writing per nursing staff. The instructions also include specific and strict return/GO TO THE ER as well as f/u information. All questions have been answered, and the patient deny any further questions with discharge and discharge plan. Some parts of this dictation were generated by voice recognition software and may contain typographical and/or grammatical inaccuracies. Differential Diagnosis Differential diagnosis: Likely upper respiratory infection, otitis media, sinusitis, viral infection, influenza and pharyngitis Lab Data Labs: Lab Results 03/27/24 03/27/24 Range/Units 15:58 16:03 POC Influenza A Ag Negative (Negative) POC Influenza B Ag Negative (Negative) POC SARS CoV-2 Ag Negative (Negative) POC Grp A Strep Screen Negative (Negative) Reviewed Critical Care Time Critical Care Time Critical Care Time: No Discharge Plan Discharge Clinical Impression: Exposure to influenza Patient Disposition: Home, Self-Care Condition: Stable Instructions: Antibiotic Form, Influenza (ED) Additional Instructions: Your rapid strep swab was negative today at [facility]. A throat culture will be sent to the laboratory for further testing. If the test is positive, you will receive a phone call within 48 hours and an appropriate antibiotic will be initiated at that time. Your rapid COVID test were negative Your rapid flu test was negative Your symptoms are likely due to a viral illness, which is not treated with antibiotics. Typically viral infections last 7-10 days, can linger for couple of weeks. It is very important to treat your symptoms. Drink plenty of water, Gatorade, Pedialyte, ice pops or Jell-O. -Alternate Tylenol and Motrin per package directions for fever or pain. You can alternate every 4 hours -Antihistamine medication such as Benadryl at night and Zyrtec/Claritin/Suzan during the day can help improve symptoms. -doing daily nasal irrigations can help relieve pressure your sinuses. Things like a Neti pot -Use Flonase twice a day for 5 days then daily to help reduce the inflammation and dry up your sinuses. -You can also use Mucinex. Be sure to drink plenty of water with this medication at least 8 ounces with every dose and it is important to drink 8 to 10 glasses of water per day. Water is a natural decongestant -Eat and drink things that are easy to swallow, like tea or soup, or popsicles. -Oral rinses such as: Salt water gargles and/or may use topical anesthetic (eg. Chloraseptic spray) or lozenges to relieve dryness or throat pain). -Frequent hand washing or hand small animal caretaker is one of the best ways to prevent spread of infection. -Using a vaporizer or humidifier at night will also help thin secretions and help with coughing up phlegm. -Follow up with primary care provider in 7-10 days if condition is not improving - For new or worsening symptoms go directly to the nearest ER Patient Language: Hungarian Prescriptions: No Action hydrochlorothiazide 12.5 mg capsule 12.5 mg PO DAILY Ultra CoQ10 75 mg capsule 75 mg PO DAILY Complete Multivitamin Tablet 1 tablet PO DAILY escitalopram oxalate 20 mg tablet 20 mg PO DAILY cholecalciferol (vitamin D3) 10 mcg (400 unit) capsule 10 mcg PO DAILY lisinopril 20 mg tablet 20 mg PO DAILY bupropion HCl [Wellbutrin SR] 150 mg tablet sustained-release 12 hr 150 mg PO DAILY Follow-up/Referrals: UNKNOWN,DOCTOR [Primary Care Provider] - Stand Alone Forms: Work/School Release IP Time of Disposition: 16:03
[2024-03-27 16:00] LABS: EDSTREPNEGPOS1 Negative (Negative)
[2024-03-27 16:05] LABS: EDCOVIDSCREEN Negative (Negative); EDINFLUASCREEN Negative (Negative); EDINFLUBSCREEN Negative (Negative)
== END 2024-03-27 16:10 | disposition home or self-care (01) ==
PROVIDERS: Emergency Provider Nurse Practitioner
DX: J02.9 Acute pharyngitis, unspecified (principal); R52 Pain, unspecified; Z20.828 Contact with and (suspected) exposure to other viral communicable diseases; Z20.822 Contact with and (suspected) exposure to COVID-19; Z87.891 Personal history of nicotine dependence; I10 Essential (primary) hypertension; F41.9 Anxiety disorder, unspecified; F32.A Depression, unspecified
CPT/HCPCS: 87081; 87426; 87804; 87880; 99213; G0463

== ENCOUNTER 2024-07-19 10:55 | Emergency (ER) | payer OTHER, SELFPAY ==
[2024-07-19] VITALS (11 sets, daily range): BP systolic 126–142; BP diastolic 66–83; PULSE 54–89; RESP 11–16; TEMP 36.6; O2SAT 94–99
--- NOTE | ~2024-07-19 | CT_ITS ---
EXAMINATION: CT abdomen pelvis w con DATE: 07/19/2024 12:43 INDICATION: Lower GI bleed TECHNIQUE: Computed tomography (CT) of the abdomen and pelvis was performed with 100 cc Omnipaque 350 intravenous contrast. The dose-length product was 399.87 mGy-cm. Automated exposure control and iter ative reconstruction technique were employed. COMPARISON: CT dated 08/21/2021 FINDINGS: Lung bases unremarkable. Heart size normal. No significant pleural or pericardial effusion. Gallbladder not identified, likely surgically absent. There is mildly dilated common bile duct. The spleen, pancreas, adrenal glands are unremarkable. There is a right renal cysts. No hydronephrosis. N onobstructive bowel gas pattern. There is abnormal thickening of the descending and proximal sigmoid colon with Pericolonic stranding, suspicious for colitis, most likely infectious/inflammatory, althou gh ischemic colitis not excluded. No free air or free fluid. IMPRESSION: 1. Abnormal thickening of the descending and proximal sigmoid colon with pericolonic stranding, suspi cious for colitis, most likely infectious/inflammatory, although ischemic colitis not excluded. Reviewed, dictated and finalized at location A. IMPRESSION: 1. Abnormal thickening of the descending and proximal sigmoid colon with thiago lonic stranding, suspicious for colitis, most likely infectious/inflammatory, a lthough ischemic colitis not excluded.
--- OUTSIDE RECORDS SUMMARY | 2024-07-19 10:57 | XMS_ITS | Encounter Summary ---
Author Organization [facility] Address [address] [place] [address] Care Team Providers Care Hydrate Control Tender Name Role Phone Britany ObandoNP Primary Care Provider [phone] Brii Maurer BOAT DESIGNER- Primary Care Provider + Encounter Details Date Type Department Care Team (Late st Contact Info) Description 01/27/2021 [employer] Message Enc [facility] Family & Internal Medicine [facility] [id number] [place] [phone] Mycderrickt, [facility] Provider lisinovivian Social History Tobacco Use Types Packs/Day Years Used Date Smoking Tobacco: Former Smokeless Tobacco: Never Alcohol Use Standard Drinks/Week Comments Yes 0 (1 standard drink = 0.6 oz pur e alcohol) AUDIT-C Answer Date Recorded Frequency of Alcohol Consumption Never 03/02/2019 Average Number of Drinks Not on file 019 Frequency of Binge Drinking Not on file 05/2018 PHQ-2 Answer Date Recorded PHQ-2 Score 1 03/02/2019 Comments No Sex and Gender Information Value Date Recorded Sex Assigned at Female 05/29/2024 11:45 AM SODA MAKER Legal Sex Female 8:20 PM CDT Gender Identity Female 05/29/2024 11:45 AM SODA MAKER Sexual Orientation Not on file documented as of this encounter Plan of Treatment Upcoming Encounters Date Type Department Care Team (Late st Contact Info) Description 08/20/2024 7:40 AM CDT Office Visit [facility] Family & Internal Medicine [facility] [address] [place] [phone] Brii Maurer, BOAT DESIGNER-BC [address] [facility] [place], [address] [place] [address] documented as of this encounter Visit Diagnoses Not on filedocumented in this encounter Care Teams Hydrate Control Tender Relationship Specialty Start Date End Date Britany Obando APNP [address] [place] [address] [place] [address] PCP - General Nurse Practitioner Family 09/29/1910/30 Brii Maurer, BOAT DESIGNER-BC [address] [facility] [place], [address] [place] [address] PCP - General Nurse Practitioner Family 11/14/22 documented as of this encounter
--- OUTSIDE RECORDS SUMMARY | 2024-07-19 10:57 | XMS_ITS | Clinical Summary ---
Author Organization [facility] Address [address] [place] [address] Care Team Providers Care Scrap Yard Worker Name Role Phone Unavailable Primary Care Provider Unavailabl e Immunizations Immunization Administration Dates Next Due Covid-19, Mrna, Lnp-s, PF, 5 0 mcg/0.25 mL dose (Moderna) 04/05/2021 Social History Tobacco Use Types Packs/Day Years Used Date Smoking Tobacco: Never Assessed Comments Unknown Sex and Gender Information Value Date Recorded Sex Assigned at Not on file Legal Sex Female 4:18 PM ORACLE HYPERION CONSULTANT Gender Identity Not on file Sexual Orientation Not on file Plan of Treatment Health Maintenance Due Date Last Done Comments Hepatitis C Virus (HCV) Screening 1968 TdaP Immunization 1968 Colonoscopy 2013 Colorectal Cancer Screening 2013 Cologuard 2018 Immunochemical Fecal Occult Blood 2018 Pneumococcal Immunization (50+ years) (1 of 1 - PCV) 2018 Zoster Immunization (1 of 2) 2018 Influenza Immunization (#1) 2023 12/0 05/2018, 01/02/2018, 01/02/2018, Additional history exists SARS-COV-2 Immunization ( season) 2023 04/05/2021, 08/09/2020, 07/12/2020 Respiratory Syncytial Virus (RSV) Immunization (Adult) (1 - 1-dose 75+ series) 12/21/2043 Hepatitis B Immunization Completed 016, 06/10/2015, 05/11/2015 Meningococcal Immunization (ACWY) Aged Out No longer eligible based on patient's age to complete this topic Rotavirus Immunization Aged Out No lo nger eligible based on patient's age to complete this topic
--- OUTSIDE RECORDS SUMMARY | 2024-07-19 10:57 | XMS_ITS | Clinical Summary ---
Author Organization [facility] Address [address] [place] [address] Care Team Providers Care Safety Pin Assembling Machine Operator Name Role Phone LibertadBrii juan Estelita [facility] Primary Care Provider + Allergies No known active allergies Medications Multiple Vitamins-Mineral s (MULTIPLE VITAMINS/WOMENS) Tab Take 1 tablet by mouth daily. 5 Active Coenzyme Q10 (COQ10 OR) Take 1 tablet by mouth daily. Active probiotic (FLORAJEN3) Cap capsule Take 1 capsule by mouth daily with breakfast. Active NON FORMULARY Take 2 tablets by mouth daily. Daniel Garcia for libido Active Calcium Carb-Cholecalcif alvaro 500-10 MG-MCG Tab Active [place]-3 Fatty Acids (FISH OIL) 500 MG capsule Take 500 mg by mouth daily. Active Turmeric 500 MG Cap Active escitalopram (LEXAPRO) 10 MG tabletIndication s:Anxiety Take 1 tablet (10 mg total) by mouth daily. 90 tablet 1 5 Active buPROPion XL (WELLBUTRIN XL) 150 MG 24 hr tabletIndication s:Anxiety Take 1 tablet (150 mg total) by mouth daily. 90 tablet 1 5 Active estradiol (CLIMARA) 0.075 MG/24HR APPLY 1 PATCH TOPICALLY TO THE SKIN EVERY 7 DAYS DIRECTED 5 Active semaglutide-weig ht management (WEGOVY) 2.4 mg/dose injection (PEN)Indications :Weight Loss Inject 2.4 mg into the skin once a week. Indications: Weight Loss 3 mL 2 5 Active hydroCHLOROthiaz maik (MICROZIDE) 12.5 MG capsuleIndicatio ns:Essential hypertension Take 1 capsule (12.5 mg total) by mouth daily. 90 capsule 3 5 Active lisinopril (PRINIVIL) 20 MG tabletIndication s:Essential hypertension Take 1 tablet (20 mg total) by mouth daily. 90 tablet 3 5 Active lisinopril (PRINIVIL) 20 MG tabletIndication s:Essential hypertension take 1 tablet by mouth every day 90 tablet 3 4 07/09/19 25 Discontin ued(Reord er) hydroCHLOROthiaz maik (MICROZIDE) 12.5 MG capsuleIndicatio ns:Essential hypertension TAKE 1 CAPSULE(12.5 MG) BY MOUTH DAILY 90 capsule 3 4 07/09/19 25 Discontin ued(Reord er) semaglutide-weig ht management (WEGOVY) 1.7 mg/dose injection (PEN)Indications :Weight Loss Inject 1.7 mg into the skin once a week. Indications: Weight Loss 3 mL 1 5 06/27/19 25 Discontin ued(Dose adjustmen t) Active Problems Problem Noted Date Diagnosed Date H/O: hysterectomy 05/22/2022 Lower abdominal pain 08/25/2021 Sciatica 01/02/2018 Snoring 01/02/2018 Fatigue 09/27/2017 Anxiety 04/07/2013 Hypertension 04/07/2013 Resolved Problems Problem Noted Date Diagnosed Date Resolved Date Engages in nicotine containi ng substance vaping 03/02/2019 05/22/2022 Need for influenza vaccination 01/02/2018 12/11/2019 Metrorrhagia 09/27/2017 05/22/2022 Encounter for screening mamm ogram for breast cancer 07/27/2016 12/11/2019 Encounter for preventive health examination 04/16/2012 12/11/2019 Encounters Date Type Department Care Team Description 06/26/2024 MyChart Message [facility] Family & Internal Medicine [address] [phone] Brii Maurer, LOCK EXPERT-BC Wegovy 06/10/2024 MyChart Message [facility] Family & Internal Medicine [address] [phone] Brii Maurer LOCK EXPERT-BC Wegovy refill 06/02/2024 MyChart Message Enc [facility] & Internal [address] [phone] [place], [facility] Provider reschedule appointment 05/29/2024 11:40 AM FOOT WORKER Office Visit [facility] Internal [address] [phone] Brii Maurer FNP-DARRYN Follow Up (F/u for Wegovy ) 05/29/2024 Travel 05/22/2024 Orders Only [address] [phone] Brii Maurer FNP-DARRYN 05/16/2024 Scan HEALTH INFO SRVCS Scanned, [facility] 05/11/2024 MyChart Message Enc [facility] Internal [address] [phone] Brii Maurer LOCK EXPERT-BC Wegovy Increase from Last 3 Months Immunizations Immunization Administration Dates Next Due Fluzone 6 Months+ Quad (0.5 mL Prefilled Syringe) 03/02/2019 Hepatitis B (Generic: Adult) 11/09/2015,06/10/19 16,05/11/2015 Hepatitis B (Recombivax Hb 10 Mcg) 11/09/2015,,05/11/2015 Influenza (Generic) 04/24/2021(Deferred: Patient Refused),01/02/2018 Influenza Adult (Generic) 01/02/2018,01/20/2015 MODERNA COVID-19 (12+) MRNA, LNP-S, PF, 100 MCG/ 0.5 ML DOSE 08/09/2020,07/12/2020 MODERNA COVID-19 (KNURLING MACHINE OPERATOR ALMAS FANG), MRNA, LNP-S, PF, 50 MCG/ 0.25 ML DOSE 04/05/2021 Family History Medical History Relation Comments Sjogren's syndrome Daughter Diabetes Father Heart Disease Father Lupus Father Uterine Cancer Maternal Grandmother Hypertension Mother Autoimmune Disease Sister 1 Lupus Sister 2 Breast Cancer Neg Hx Relation Status Comments Daughter Alive Father Maternal Grandmother Mother Alive Sister 1 Sister 2 Alive Social History Tobacco Use Types Packs/Day Years Used Date Smoking Tobacco: Every Day Cigarettes Smokeless Tobacco: Current Tobacco Cessation:Counseling Given: Yes Comments:Vaping on/off disposable. Alcohol Use Standard Drinks/Week Comments Not Currently 0 (1 standard drink = 0.6 oz pur e alcohol) occ AUDIT-C Answer Date Recorded Frequency of Alcohol Consumption Never 03/02/2019 Average Number of Drinks Not on file 019 Frequency of Binge Drinking Not on file 05/2018 PHQ-2 Answer Date Recorded Patient Health Questionnaire-2 Score 0 05/29/2024 Comments No Sex and Gender Information Value Date Recorded Sex Assigned at Female 05/29/2024 11:45 AM FOOT WORKER Legal Sex Female 8:20 PM CDT Gender Identity Female 05/29/2024 11:45 AM FOOT WORKER Sexual Orientation Not on file Last Filed Vital Signs Vital Sign Reading Time Taken Comments Blood Pressure 120/88 05/29/2024 11:46 AM FOOT WORKER Pulse 92 05/29/2024 11:46 AM FOOT WORKER Temperature 36.4 C (97.5 F) 05/29/2024 11:46 AM FOOT WORKER Respiratory Rate 16 05/29/2024 11:46 AM FOOT WORKER Oxygen Saturation 98% 05/29/2024 11:46 AM FOOT WORKER Inhaled Oxygen Concentration - - Weight 83 kg (183 lb) 05/29/2024 11:46 AM FOOT WORKER Height 170.2 cm (5' 7 ) 05/29/2024 11:46 AM FOOT WORKER Body Mass Index 28.66 05/29/2024 11:46 AM FOOT WORKER Plan of Treatment Upcoming Encounters Date Type Department Care Team (Late st Contact Info) Description 08/20/2024 7:40 AM CDT Office Visit [facility] Family & Internal Medicine [facility] [phone] [place] [phone] Brii Maurer, LOCK EXPERT-BC [address] [place] [address], [address] [place] [address] Health Maintenance Due Date Last Done Comments Pneumococcal Vaccine: 50+ Years (1 of 2 - PCV) 12/21/1987 DTaP, Tdap and Td Vaccines (1 - Tdap) 07/18/2024 Postponed from 12/21/1987 (Future Appointment) Annual Physical 07/27/2024 Postponed fr om 12/21/1971 (Future Appointment) Colorectal Cancer Screening Colonoscopy (10 Years) 08/03/2024 Postponed from 1968 (Future Appointment) Zoster Vaccines (1 of 2) 08/03/2024 Pos tponed from 2018 (Future Appointment) COVID-19 Vaccine ( season) 2025 04/05/2021, 08/09/2020, 07/12/2020 Postponed from 12/01/2023 (Patient Refused) Mammogram Screening 10/23/2025 10/24/2023, 08/21/2021, 04/29/2020, Additional history exists Hepatitis C 05/22/2052 Postponed from 1986 (Patient Refused) Hepatitis B Vaccines Completed 11/09/2015, 11/09/2015, 06/10/2015, Additional history exists Colorectal Cancer Screening FIT/FOBT (1 Year) Discontinued 05/04/2020 PHQ-2 (Physician [place]) Completed 05/29/2024 Meningococcal B Vaccine Aged Out No l onger eligible based on patient's age to complete this topic Meningococcal Vaccine Aged Out No jacky james eligible based on patient's age to complete this topic RSV Immunizations Under 20 Months Aged Out No longer eligible based on patient's age to complete this topic Procedures Procedure Name Priority Date/Time Associated Diagnosis Comments MAMMOGRAM GENERIC (SCAN ORDER) 10/24/2023 FECAL BLOOD OCCULT (SCAN ORDER) Routine 05/04/2020 from Last 3 Months or Most Recently Relevant to Health Maintenance Results * MAMMOGRAM GENERIC (SCAN ORDER) (10/24/2023) Anatomical Region Laterality Modality Other 10/24/2023 [facility] Scanned SCANNING Final Resu lt * FECAL BLOOD OCCULT (05/04/2020) FECAL OCCULT BLOOD NEGATIVE [facility] 05/04/2020 us Documents Scanned SCANNING Final Result [facility] from Last 3 Months or Most Recently Relevant to Health Maintenance Insurance [employer] Care Teams Safety Pin Assembling Machine Operator Relationship Specialty Start Date End Date Brii Maurer, LOCK EXPERT- [id number], [address] [place] [address] PCP - General Nurse Practitioner Family 11/14/22
--- OUTSIDE RECORDS SUMMARY | 2024-07-19 10:57 | XMS_ITS | Encounter Summary ---
Author Organization [facility] Address [address] [place] [address] Care Team Providers Care Head Of Sales And Marketing Name Role Phone Brii Maurer [facility] Primary Care Provider + Encounter Details Date Type Department Care Team (Late st Contact Info) Description 04/09/2023 Vault Dragon Message [address] [phone] [facility] Provider results Social History Tobacco Use Types Packs/Day Years Used Date Smoking Tobacco: Former Cigarettes Smokeless Tobacco: Current Comments:Vaping on/off dispo sable. Alcohol Use Standard Drinks/Week Comments Yes 0 (1 standard drink = 0.6 oz pur e alcohol) occ AUDIT-C Answer Date Recorded Frequency of Alcohol Consumption Never 03/02/2019 Average Number of Drinks Not on file Frequency of Binge Drinking Not on file 05/2018 PHQ-2 Answer Date Recorded Patient Health Questionnaire-2 Score 0 04/06/2023 Comments No Sex and Gender Information Value Date Recorded Sex Assigned at Female 05/29/2024 11:45 AM CHAIR LIFT OPERATOR Legal Sex Female 8:20 PM CDT Gender Identity Female 05/29/2024 11:45 AM CHAIR LIFT OPERATOR Sexual Orientation Not on file documented as of this encounter Plan of Treatment Upcoming Encounters Date Type Department Care Team (Late st Contact Info) Description 08/20/2024 7:40 AM CDT Office Visit [facility] Medical Group Family & Internal Medicine [address] [address] Brii Maurer FNP- [address], [address] [place] [address] documented as of this encounter Visit Diagnoses Not on filedocumented in this encounter Additional Health Concerns Assessment Noted Time PHQ-9 Depression Total Score: 2 08/26/19 22 9:05 AM CDT documented as of this encounter Care Teams Head Of Sales And Marketing Relationship Specialty Start Date End Date Brii Maurer [facility]- [address], [address] [place] [address] PCP - General Nurse Practitioner Family 11/14/22 documented as of this encounter
--- OUTSIDE RECORDS SUMMARY | 2024-07-19 10:57 | XMS_ITS | Encounter Summary ---
Author Organization [facility] Address [address] [place] [address] Care Team Providers Care Tromper Name Role Phone [facility] Primary Care Provider + Encounter Details Date Type Department Care Team (Late st Contact Info) Description 03/19/2024 [employer] Message Enc [facility] Medical Group Family & Internal Medicine [facility] [address] [place] [phone] Brii Maurer FNP-DARRYN [id number] [place] [address], [address] [place] [address] Follow up on Elicia. Social History Tobacco Use Types Packs/Day Years [...] Date Recorded Patient Health Questionnaire-2 Score 0 02/03/2024 Comments No Sex and Gender Information Value Date Recorded Sex Assigned at Female 05/29/2024 11:45 AM ADMINISTRATIVE OFFICE CLERK Legal Sex Female 8:20 PM CDT Gender Identity Female 05/29/2024 11:45 AM ADMINISTRATIVE OFFICE CLERK Sexual Orientation Not on file documented as of this encounter Progress Notes * NEYMAR Herrera - 03/20/2024 10:29 AM CST Yes, there is the risk of low blood pressure. I would recommend watching it at home and if blood pressure is consistently <100/50 we may need to lower lisinopril and hydrochlorothiazide. There is also a risk of very low BP and passing out if mixed with alcohol so I would advise against regular alcohol intake. As far as her bupropion and lexapro there is not significant interactions, but if shenotices changes in her mood, please let me know and we can adjust medications accordingly. NISTRATIVE OFFICE CLERK * Jolene Montoya RN - 03/20/2024 9:12 AM CST Please review medication name. NISTRATIVE OFFICE CLERK * NEYMAR Herrera - 03/19/2024 4:16 PM CST The options would be to continue wegovy 0.5 mg weekly for another month or we can try increasing to1 mg weekly. Side effects could worsen at higher doses, so she may want to stick with the lower dose for another month. I am not familiar with Abbvyi. Does she mean Addyi? Or the pharmaceutical company AbbVie? NISTRATIVE OFFICE CLERK * Jolene Montoya RN - 03/19/2024 2:26 PM CST Please advise. NISTRATIVE OFFICE CLERK documented in this encounter Plan of Treatment Upcoming Encounters Date Type Department Care Team (Late st Contact Info) Description 08/20/2024 7:40 AM CDT Office Visit [facility] Medical Group Family & Internal Medicine [address] [address] Brii Maurer FNP-DARRYN [address] [address], [address] [place] [address] documented as of this encounter Visit Diagnoses Not on filedocumented in this encounter Additional Health Concerns Assessment Noted Time PHQ-9 Depression Total Score: 3 02/03/20 24 11:07 AM ADMINISTRATIVE OFFICE CLERK documented as of this encounter Care Teams Tromper Relationship Specialty Start Date End Date Brii Maurer FNP-DARRYN [address] [address], [address] [place] [address] PCP - General Nurse Practitioner Family 11/14/22 documented as of this encounter
--- OUTSIDE RECORDS SUMMARY | 2024-07-19 10:57 | XMS_ITS | Encounter Summary ---
Author Organization [facility] Address [address] [place] [address] Care Team Providers Care Camp Housekeeper Name Role Phone Brii Maurer [facility] Primary Care Provider + Encounter Details Date Type Department Care Team (Late st Contact Info) Description 02/13/2024 Three Rings Message Enc [facility] Medical Group Family & Internal Medicine [facility] [address] [place] [phone] Brii Maurer, [facility] [id number] [place] [address], [address] [place] [address] Blood test results Social History Tobacco Use Types Packs/Day [...] Sex Assigned at Female 05/29/2024 11:45 AM OCEAN EXPORT COORDINATOR Legal Sex Female 8:20 PM CDT Gender Identity Female 05/29/2024 11:45 AM OCEAN EXPORT COORDINATOR Sexual Orientation Not on file documented as of this encounter Progress Notes * Sasha Guevara MA - 02/14/2024 11:31 AM CST Called pt with results, pt v/u, see result note N EXPORT COORDINATOR * NEYMAR Herrera - 02/13/2024 3:56 PM CST See results review. Please let her know not all of her lab work results are back, which is why she had not yet been contacted. N EXPORT COORDINATOR * Anh Herrmann MA - 02/13/2024 11:32 AM CST Advise? N EXPORT COORDINATOR documented in this encounter Plan of Treatment Upcoming Encounters Date Type Department Care Team (Late st Contact Info) Description 08/20/2024 7:40 AM CDT Office Visit [facility] Medical Group Family & Internal Medicine [facility] [address] [place] [phone] Brii Maurer FNP-BC [address] [place] [address] documented as of this encounter Visit Diagnoses Not on filedocumented in this encounter Additional Health Concerns Assessment Noted Time PHQ-9 Depression Total Score: 3 02/03/20 24 11:07 AM OCEAN EXPORT COORDINATOR documented as of this encounter Care Teams Camp Housekeeper Relationship Specialty Start Date End Date Brii Maurer FNP-BC [address] [place] [address] PCP - General Nurse Practitioner Family 11/14/22 documented as of this encounter
--- OUTSIDE RECORDS SUMMARY | 2024-07-19 10:57 | XMS_ITS | Encounter Summary ---
Author Organization [facility] Address [address] [place] [address] Care Team Providers Care Advanced Practice Nurse Psychotherapist Name Role Phone Britany Obando Primary Care Provider [phone]- [phone] rBii Maurer SQL SSRS SSIS DEVELOPER- Primary Care Provider + Encounter Details Date Type Department Care Team (Late st Contact Info) Description 05/13/2020 [employer] Message [facility] [address] [place] [address] [email or web address], [facility] Provider lab results Social History Tobacco Use Types Packs/Day [...] Sex Assigned at Female 05/29/2024 11:45 AM RAILWAY YARD ASSISTANT Legal Sex Female 8:20 PM CDT Gender Identity Female 05/29/2024 11:45 AM RAILWAY YARD ASSISTANT Sexual Orientation Not on file COVID-19 Exposure Response Date Recorded In the last month, have you been in contact with someone who was confirmed or suspected to have Coronavirus / COVID-19? No / Unsure 04/29/2020 12:16 PM RAILWAY YARD ASSISTANT documented as of this encounter Plan of Treatment Upcoming Encounters Date Type Department Care Team (Late st Contact Info) Description 08/20/2024 7:40 AM CDT Office Visit [facility] Medical Group Family & Internal Medicine - [place] [address] [place] [phone] Brii Maurer FNP-BC [address] [facility] [place], [address] [place] [address] documented as of this encounter Visit Diagnoses Not on filedocumented in this encounter Care Teams Advanced Practice Nurse Psychotherapist Relationship Specialty Start Date End Date Britany Obando APNP [address] [address] PCP - General Nurse Practitioner Family 09/29/1910/30 Brii Maurer FNP-DARRYN [address] [facility] [place], [address] [place] [address] PCP - General Nurse Practitioner Family 11/14/22 documented as of this encounter
--- OUTSIDE RECORDS SUMMARY | 2024-07-19 10:57 | XMS_ITS | Encounter Summary ---
Author Organization [facility] Address [address] [place] [address] Care Team Providers Care Chief Of Planning Name Role Phone Brii Maurer [facility] Primary Care Provider + Encounter Details Date Type Department Care Team (Late st Contact Info) Description 04/02/2023 [employer]Ocean Message Enc [facility] Medical Group Family & Internal Medicine [facility] [phone] [place] [phone] Brii Maurer, [facility] [id number] [place] [address], [address] [place] [address] Dizziness with medication Social History Tobacco Use Types Packs/Day Years [...] Sex Assigned at Female 05/29/2024 11:45 AM DICE TABLE OPERATOR Legal Sex Female 8:20 PM CDT Gender Identity Female 05/29/2024 11:45 AM DICE TABLE OPERATOR Sexual Orientation Not on file documented as of this encounter Progress Notes * Jolene Montoya RN - 04/10/2023 10:57 AM CST Pt made aware and v/u. She said the dizziness started end of March before the UTI. She did stop the Venlafaxine and went back to Lexapro 10mg daily. Dizziness has improved since switching. UTI is resolving. TABLE OPERATOR * Jolene Montoya RN - 04/08/2023 12:18 PM CST Please advise. TABLE OPERATOR documented in this encounter Plan of Treatment Upcoming Encounters Date Type Department Care Team (Late st Contact Info) Description 08/20/2024 7:40 AM CDT Office Visit [facility] Medical Group Family & Internal Medicine [address] [phone] Brii Maurer FNP-BC [address] [place] [address] documented as of this encounter Visit Diagnoses Not on filedocumented in this encounter Additional Health Concerns Assessment Noted Time PHQ-9 Depression Total Score: 2 08/26/19 22 9:05 AM CDT documented as of this encounter Care Teams Chief Of Planning Relationship Specialty Start Date End Date Brii Maurer FNP-BC [address] [place] [address] PCP - General Nurse Practitioner Family 11/14/22 documented as of this encounter
--- OUTSIDE RECORDS SUMMARY | 2024-07-19 10:57 | XMS_ITS | Encounter Summary ---
Author Organization [facility] Address [address] [place] [address] Care Team Providers Care Podiatric Surgeon Name Role Phone Siria Vega NP Primary Care Provider Britany Jones APNP Primary Care Provider [phone]- [phone] Brii Maurer RAGS LABORER- Primary Care Provider + Encounter Details Date Type Department Care Team (Latest Contact Info) Description 02/04/2018 Abstract [facility] Medical Group Prashant Lin MD Social History Tobacco Use Types Packs/Day Years Used Date Smoking Tobacco: Never Assessed Comments Unknown Sex and Gender Information Value Date Recorded Sex Assigned at Female 05/29/2024 11:45 AM CHILDCARE ATTENDANT Legal Sex Female 8:20 PM CDT Gender Identity Female 05/29/2024 11:45 AM CHILDCARE ATTENDANT Sexual Orientation Not on file documented as of this encounter Plan of Treatment Upcoming Encounters Date Type Department Care Team (Late st Contact Info) Description 08/20/2024 7:40 AM CDT Office Visit [facility] Medical Group Family & Internal Medicine [facility] [address] [place] [phone] Brii Maurer, RAGS LABORER-[address], [address] [place] [address] documented as of this encounter Visit Diagnoses Not on filedocumented in this encounter Care Teams Podiatric Surgeon Relationship Specialty Start Date End Date Siria Vega NP PCP - General Nurse Practitioner Family 03/28/1809/27/ 0 Britany Obando APNP [address] [facility] [address] [place] [address] PCP - General Nurse Practitioner Family 09/29/1910/30 Brii Maurer, RAGS LABORER- [address] [facility] [address] [place] [id number] PCP - General Nurse Practitioner Family 11/14/22 documented as of this encounter
--- OUTSIDE RECORDS SUMMARY | 2024-07-19 10:57 | XMS_ITS | Clinical Summary ---
Author Organization [facility] [id number] [facility] Address [address] [place] [address] Care Team Providers Care Multi Needle Machine Operator Name Role Phone Unavailable Primary Care Provider Unavailabl e Allergies No known active allergies Medications coenzyme Q10 Capsule Take 1 Tablet by mouth daily. Active buPROPion HCL (WELLBUTRIN XL) 150 mg Extended Release 24 hour tablet Take 150 mg by mouth daily. 09/17/2023 Active Calcium-Choleca lciferol, D3, (Calcium 500 With D) 500 mg-10 mcg (400 unit) Tablet Active escitalopram oxalate (LEXAPRO) 10 mg tablet Take 10 mg by mouth daily. Active hydroCHLOROthia zide (MICROZIDE) 12.5 mg capsule Take 12.5 mg by mouth daily. 06/07/2023 Active L.acid/L.casei/ B.bif/B.jacky/FOS (PROBIOTIC BLEND ORAL) Active lisinopriL (PRINIVIL) 20 mg tablet Take 20 mg by mouth daily. Active lysine (L-Lysine) 500 mg tablet Active ubidecarenone/o bryon-3/vit E (COQ-10 & FISH OIL ORAL) Active estradioL (CLIMARA) 0.075 mg/24 hr patch Apply 1 Patch to skin as directed every 7 days. 12 Patch 3 02/03/2024 Active flibanserin (Addyi) 100 mg Tablet Take 100 mg by mouth daily at bedtime. 90 Tablet 3 02/03/2024 Active Active Problems No known active problems Encounters Date Type Department Care Team Description 06/17/2024 External Device Data [facility] ABSTRACTION Provider, Abstract 06/09/2024 External Device Data [facility] Provider, Abstract 06/09/2024 External Device Data [facility] Provider, Abstract 06/06/2024 External Device Data [facility] Provider, Abstract 06/05/2024 External Device Data [facility] Provider, Abstract 06/02/2024 External Device Data [facility] Provider, Abstract 05/19/2024 External Device Data [facility] Provider, Abstract 05/05/2024 External Device Data [facility] Provider, Abstract 04/22/2024 External Device Data [facility] Provider, Abstract 04/21/2024 External Device Data [facility] Provider, Abstract from Last 3 Months Family History Medical History Relation Name Comments Heart Disease Brother Gunnar Heart Disease Father Gonzales Hypertension Mother Alexandria Stroke Sister Asia Relation Name Status Comments Brother Gunnar Father Gonzales Mother Alexandria Sister Asia Social History Tobacco Use Types Packs/Day Years Used Date Smoking Tobacco: Every Day Cigarettes 1 15 Tobacco Cessation:Ready to Q uit: Not Asked; Counseling Given: Not Answered Alcohol Use Standard Drinks/Week Comments Yes 1 (1 standard drink = 0.6 oz pur e alcohol) Comments No Sex and Gender Information Value Date Recorded Sex Assigned at Not on file Legal Sex Female 11:38 AM CDT Gender Identity Not on file Sexual Orientation Not on file Last Filed Vital Signs Vital Sign Reading Time Taken Comments Blood Pressure 106/64 02/03/2024 4:12 PM SHINGLE CARRIER Pulse - - Temperature - - Respiratory Rate - - Oxygen Saturation - - Inhaled Oxygen Concentration - - Weight 91.7 kg (202 lb 3.2 oz) 02/03/2024 4:12 P M SHINGLE CARRIER Height 170.2 cm (5' 7 ) 02/03/2024 4:12 PM SHINGLE CARRIER Body Mass Index 31.67 02/03/2024 4:12 PM SHINGLE CARRIER Plan of Treatment Health Maintenance Due Date Last Done Comments Pre-Diabetes and Diabetes Screening 1968 DTAP/TDAP/TD VACCINES (1 - Tdap) 12/21/1987 HEPATITIS B VACCINES (1 of 3 - 19+ 3-dose series) 12/21/1987 11/09/2015, 06/10/2015, 05/11/2015 PAP SMEAR 1998 COLORECTAL SCREENING 2013 Colorectal Cancer Screening 2013 FIT-DNA Q 3 years 2013 FIT/FOBT Q 1 year 2013 Flex Sig/CT Colonography Q 5 years 2013 ZOSTER VACCINE (1 of 2) 2018 BREAST CANCER SCREENING 08/21/2022 08/22/19 22, 04/29/2020, 04/03/2019, Additional history exists INFLUENZA VACCINE (#1) 2023 03/02/2019 COVID-19 Vaccine (4 - 2023-2 5 season) 2023 04/05/2021, 08/09/2020, 07/12/2020 Insurance [place] [id number]
--- OUTSIDE RECORDS SUMMARY | 2024-07-19 10:57 | XMS_ITS | Encounter Summary ---
Author Organization [facility] Address [address] [place] [address] Care Team Providers Care Milk Pickup Driver Name Role Phone Britany Obando Primary Care Provider [phone]- [phone] Brii Maurer [facility] Primary Care Provider + Encounter Details Date Type Department Care Team (Late st Contact Info) Description 05/23/2020 Glu Mobile Message Enc [facility] Medical Group Family & Internal Medicine [facility] [address] [place] [address] Britany Obando APNP [address] [address] RE: Test Results Social History Tobacco Use Types Packs/Day Years [...] Sex Assigned at Female 05/29/2024 11:45 AM SOFTWARE RELEASE MANAGER Legal Sex Female 8:20 PM CDT Gender Identity Female 05/29/2024 11:45 AM SOFTWARE RELEASE MANAGER Sexual Orientation Not on file COVID-19 Exposure Response Date Recorded In the last month, have you been in contact with someone who was confirmed or suspected to have Coronavirus / COVID-19? No / Unsure 05/19/2020 9:05 AM SOFTWARE RELEASE MANAGER documented as of this encounter Progress Notes * Regina Prieto NP - 05/23/2020 5:03 PM CST What test results.? WARE RELEASE MANAGER * Jolene Montoya RN - 05/23/2020 4:20 PM CST Please advise WARE RELEASE MANAGER documented in this encounter Plan of Treatment Upcoming Encounters Date Type Department Care Team (Late st Contact Info) Description 08/20/2024 7:40 AM CDT Office Visit [facility] Medical Group Family & Internal Medicine [address] [phone] Brii Maurer FNP-BC [address] [place] [address] documented as of this encounter Visit Diagnoses Not on filedocumented in this encounter Care Teams Milk Pickup Driver Relationship Specialty Start Date End Date Britany Obando APNP [address] [place] [address] PCP - General Nurse Practitioner Family 09/29/1910/30 Brii Maurer FNP-DARRYN [address] [place] [address], [address] [address] PCP - General Nurse Practitioner Family 11/14/22 documented as of this encounter
--- OUTSIDE RECORDS SUMMARY | 2024-07-19 10:57 | XMS_ITS | Encounter Summary ---
Author Organization [facility] Address [address] [place] [address] Care Team Providers Care Bobbin Marker Name Role Phone Brii Maurer [facility] Primary Care Provider + Encounter Details Date Type Department Care Team (Late st Contact Info) Description 06/10/2024 School Placest Message Enc [facility] Medical Group Family & Internal Medicine [facility] [address] [place] [phone] Brii Maurer, [facility] [address] [place] [address], [address] [place] [address] Wegovy refill Social History Tobacco Use Types Packs/Day Years Used Date Smoking Tobacco: Every Day Cigarettes Smokeless Tobacco: Current Comments:Vaping on/off dispo sable. Alcohol Use Standard Drinks/Week Comments Not Currently [...] Sex Assigned at Female 05/29/2024 11:45 AM LAWN SERVICE WORKER Legal Sex Female 8:20 PM CDT Gender Identity Female 05/29/2024 11:45 AM LAWN SERVICE WORKER Sexual Orientation Not on file documented as of this encounter Plan of Treatment Upcoming Encounters Date Type Department Care Team (Late st Contact Info) Description 08/20/2024 7:40 AM CDT Office Visit [facility] Medical Group Family & Internal Medicine [facility] [address] [place] [address] Brii Maurer FNP-BC [address] [facility], [address] [address] documented as of this encounter Visit Diagnoses Not on filedocumented in this encounter Additional Health Concerns Assessment Noted Time PHQ-9 Depression Total Score: 2 05/29/19 25 12:27 PM LAWN SERVICE WORKER documented as of this encounter Care Teams Bobbin Marker Relationship Specialty Start Date End Date Brii Maurer FNP-BC [address] [facility], [address] [address] PCP - General Nurse Practitioner Family 11/14/22 documented as of this encounter
--- OUTSIDE RECORDS SUMMARY | 2024-07-19 10:57 | XMS_ITS | Encounter Summary ---
Author Organization [facility] Address [address] [place] [address] Care Team Providers Care Tea Leaf Reader Name Role Phone Britany Obando Primary Care Provider [phone] Brii Maurer PIPE AND BOILER COVERS SUPERVISOR- Primary Care Provider + Encounter Details Date Type Department Care Team (Late st Contact Info) Description 06/29/2020 [place] [facility][Note 3] Patient Accounts [address] [place] [address] [facility] [facility] Provider RE: Account [id number] Social History Tobacco Use Types Packs/Day Years [...] Sex Assigned at Female 05/29/2024 11:45 AM DIRECTOR REGULATORY AFFAIRS Legal Sex Female 8:20 PM CDT Gender Identity Female 05/29/2024 11:45 AM DIRECTOR REGULATORY AFFAIRS Sexual Orientation Not on file documented as of this encounter Plan of Treatment Upcoming Encounters Date Type Department Care Team (Late st Contact Info) Description 08/20/2024 7:40 AM CDT Office Visit [facility] Medical Group Family & Internal Medicine [address] [phone] Brii Maurer FNP-BC [address] [facility], [address] [place] [address] documented as of this encounter Visit Diagnoses Not on filedocumented in this encounter Care Teams Tea Leaf Reader Relationship Specialty Start Date End Date Britany Obando APNP [address] [place] [address] [place] [address] PCP - General Nurse Practitioner Family [birth year]/1910/30 Brii Maurer, PIPE AND BOILER COVERS SUPERVISOR- [address] [facility], [address] [place] [address] PCP - General Nurse Practitioner Family 11/14/22 documented as of this encounter
--- OUTSIDE RECORDS SUMMARY | 2024-07-19 10:57 | XMS_ITS | Encounter Summary ---
Author Organization [facility] Address [address] [place] [address] Care Team Providers Care Cornice Upholsterer Name Role Phone Gary Siria MACHINE BOSS Primary Care Provider Britany Jones APNP Primary Care Provider [phone] Brii Maurer OYSTER OPENER- Primary Care Provider + Encounter Details Date Type Department Care Team (Late Contact Info) Description 05/26/2018 BOND CLERK ONLY [facility] Medical Group Priority Care - [address] [place] [address] Scanned, Documents Social History Tobacco Use Types Packs/Day Years Used Date Smoking Tobacco: Never Assessed Comments Unknown Sex and Gender Information Value Date Recorded Sex Assigned at Female 05/29/2024 11:45 AM TABLE GAMES MANAGER Legal Sex Female 8:20 PM CDT Gender Identity Female 05/29/2024 11:45 AM TABLE GAMES MANAGER Sexual Orientation Not on file documented as of this encounter Progress Notes * Zscanned, Documents - 05/26/2018 12:00 AM CST PUMA SOLER MD: ACCT: [id number] ADMIT/SERVICE DATE: 02/14/18 DISCHARGE DATE: 03/18/18 : 1970 PT TYPE: DIS RCR SEX: F ORD SITE: [facility] CHART DOCUMENT REHABILITATION DISCHARGE SUMMARY THIS PATIENT WAS SEEN FROM 01/10/2018 THROUGH 02/18/18 FOR A TOTAL OF EIGHT VISITS. REASON FOR DISCONTINUATION OF SERVICES: THIS PATIENT CALLED ON 02/18/18 TO CANCEL ALL APPOINTMENTS DUE TO [id number] COSTS. CURRENT PHYSICAL/FUNCTIONAL STATUS: WE WERE UNABLE TO FORMALLY RE-ASSESS HER SHE SUDDENLY CANCELLED HER APPOINTMENTS. AT HER PREVIOUS VISIT, SHE HAD NOTED THAT SHE WAS COMPLIANT WITH HEP. SHE ATTEMPTS TO CORRECT SITTING POSTURE ABLE. SHE ALSO HAD STATED SHE WAS FEELING BETTER OVERALL AND ONLY TAKING IBUPROFEN FOR PAIN CONTROL. DEGREE OF GOAL ACHIEVEMENT: THIS PATIENT PARTIALLY MET HER PAIN GOAL. WE WERE UNABLE TO RE-ASSESS FOR STRENGTH AND FLEXIBILITY, BUT IT SEEMS THAT SHE WOULD HAVE AT LEAST PARTIALLY MET THESE GOALS SHE WAS HAVING IMPROVED PAIN AND IMPROVED ACTIVITY TOLERANCE. HER HEP GOAL WAS MET AND HER SITTING GOAL WAS ALSO MET. DISCHARGE PLAN: THIS PATIENT IS BEING DISCHARGED FROM PHYSICAL THERAPY SERVICES AT HER REQUEST. SHE DID HAVE HEP TO CONTINUE WITH. ELECTRONICALLY SIGNED BY HANNA ARAUJO P.T. 05/26/2018 04:10 P CI/ JOB NO: [id number] DOC NO: [id number] 05/26/2018 05/26/2018 03:24 P CC: E GAMES MANAGER documented in this encounter Plan of Treatment Upcoming Encounters Date Type Department Care Team (Late st Contact Info) Description 08/20/2024 7:40 AM CDT Office Visit [facility] Medical Group Family & Internal Medicine [address] [address] Brii Maurer, [facility]-[address] [phone] documented as of this encounter Visit Diagnoses Not on filedocumented in this encounter Care Teams Cornice Upholsterer Relationship Specialty Start Date End Date Siria Vega NP PCP - General Nurse Practitioner Family 03/28/18 0 Britany Obando APNP [address] [place] [address] [phone] PCP - General Nurse Practitioner Family 09/[birth year]10/30 Brii Maurer, [facility]- [address], [address] [place] [address] PCP - General Nurse Practitioner Family 11/14/22 documented as of this encounter
--- OUTSIDE RECORDS SUMMARY | 2024-07-19 10:57 | XMS_ITS | Encounter Summary ---
Author Organization [facility] Address [address] [place] [address] Care Team Providers Care Block Making Machine Operator Name Role Phone Brii Maurer [facility] Primary Care Provider + Encounter Details Date Type Department Care Team (Late st Contact Info) Description 06/02/2024 [employer] Message Enc [facility] Medical [facility] Family & Internal [facility] [id number] [place] [phone] [facility] Provider reschedule appointment Social History Tobacco Use Types Packs/Day Years [...] Sex Assigned at Female 05/29/2024 11:45 AM BUSINESS CONSULTANT Legal Sex Female 8:20 PM CDT Gender Identity Female 05/29/2024 11:45 AM BUSINESS CONSULTANT Sexual Orientation Not on file documented as of this encounter Plan of Treatment Upcoming Encounters Date Type Department Care Team (Late st Contact Info) Description 08/20/2024 7:40 AM CDT Office Visit [facility] Family & Internal [address] [address] Brii Maurer FNP- [address] [place] [address] documented as of this encounter Visit Diagnoses Not on filedocumented in this encounter Additional Health Concerns Assessment Noted Time PHQ-9 Depression Total Score: 2 05/29/19 25 12:27 PM BUSINESS CONSULTANT documented as of this encounter Care Teams Block Making Machine Operator Relationship Specialty Start Date End Date Brii Maurer OPINION POLLS SURVEY WORKER- [address], [address] [place] [address] PCP - General Nurse Practitioner Family 11/14/22 documented as of this encounter
[2024-07-19 11:37] LABS: Basophils Percent Auto 0.2 % (0.2-1.2); Eosinophils Absolute Auto 0.1 K/mm3 (0-0.3); Eosinophils Percent Auto 0.5 % (0-4.4); Hematocrit 43.7 % (37.0-47.0); Hemoglobin 14.2 g/dL (12.0-15.0); Immature Granulocyte Absolute 0.08 K/mm3 (0.00-0.031); Immature Granulocyte Percent A 0.5 % (0-0.5); Lymphocytes Absolute Auto 2.04 K/mm3 (0.9-3.2); Mean Corpuscular HGB Conc 32.5 g/dl (32-36); Mean Corpuscular Volume 89.4 fl (80-100); Mean Platelet Volume 10.4 fl (7.4-10.4); Monocytes Absolute Auto 0.8 K/mm3 (0.1-0.6); Monocytes Percent Auto 4.7 % (2.6-8.5); Neutrophils Absolute Auto 13.9 K/mm3 (1.3-6.7); Neutrophils Percent Auto 82.1 % (45.5-73.1); Platelet Count Result 286 k/mm3 (150-375); Red Blood Count 4.89 M/mm3 (4.2-5.4); Red Cell Distribution Width 13.2 % (11.5-14.5)
--- NOTE | 2024-07-19 11:38 | ED.ABDPAIN ---
HPI - Abdominal Pain General Chief Complaint: Abdominal Pain Stated Complaint: abd pain with blood in her stool Time Seen by Provider: 07/19/24 11:27 History of Present Illness HPI narrative: Yesterday patient started noticing some abdominal cramping, and loose stools, and noticed some dark blood in her stool. Some slight nausea also. Never had history of this in the past, no prior colonoscopy Related Data Home Medications ?Medication ?Instructions ?Recorded ?Confirmed ?Last Taken ?Type cholecalciferol (vitamin D3) 10 10 mcg PO DAILY 04/21/20 05/05/21 09/02/20 History mcg (400 unit) capsule coenzyme Q10 75 mg capsule (Ultra 75 mg PO DAILY 04/21/20 05/05/21 09/02/20 History CoQ10) escitalopram oxalate 20 mg tablet 20 mg PO DAILY 04/21/20 05/05/21 09/06/20 History hydrochlorothiazide 12.5 mg capsule 12.5 mg PO DAILY 04/21/20 05/05/21 09/06/20 History multivitamin,hq-xhzj-xroxajdw 1 tablet PO DAILY 04/21/20 05/05/21 09/02/20 History (Complete Multivitamin tablet) bupropion HCl 150 mg tablet,12 hr 150 mg PO DAILY 04/26/23 Unknown History sustained-release (Wellbutrin SR) lisinopril 20 mg tablet 20 mg PO DAILY 04/26/23 Unknown History Allergies Allergy/AdvReac Type Severity Reaction Status Date / Time No Known Allergies Allergy Mild Verified 07/19/24 10:57 Review of Systems Review of Systems: All systems reviewed & are unremarkable except as noted in HPI and below PMFSH Past Medical History Medical History Depression Anxiety Vaginal delivery x3 Hypertension Surgical History Surgical History History of cystoscopy 09/07/20 History of bilateral salpingo-oophorectomy 09/07/20 History of laparoscopy 09/07/20, Diagnostic History of hysterectomy, supracervical 09/07/20, abdominal hysterectomy with removal of adnexal cyst for bilateral endometriomas and right paratubal cyst, lysis of adhesions History of cholecystectomy Procious teeth removed Family History Family History Mother Hypertension Father Family history of diabetes mellitus in first degree relative Family history of coronary artery disease Daughter Autism Social History Social History Smoking packs per day: 0.5 Smoking cigarettes per day: 10.0 Years smoked: 15 Smoking pack-years: 7.50 Smoking status: Former smoker (current vape smoker) Tobacco type: e-cigarettes/vaping Second hand tobacco smoke exposure: No Additional smoking assessment comments: CIGARETTES - QUIT 04/01/10, VAPING QUIT 05/30/20 Alcohol intake: current Alcohol use details: RARE Substance use: never Substance use type: does not use Do You Feel Safe in your Home?: Yes Lack of Transportation: YES Lack of Food: Never True Current Housing: I Have Housing Concerned About Future Housing: No Difficulty Paying Gas/Electric Bills: No Difficulty Paying for Meds: No Currently Unemployed: No Education: Bachelor's Degree Difficulty w/ Childcare or Family Care: No Living arrangements: with family Spiritual care concerns: No Exam Narrative: EXAMINATION OF ORGAN SYSTEMS/BODY AREAS: Constitutional: Vital signs per nursing GENERAL: Appears uncomfortable in the bed HEAD: Normal with no signs of head trauma. EYES: EOMI, conjunctiva normal ENT: Hearing grossly intact LUNGS: Nonlabored breathing. HEART: [Regular rate and rhythm] ABD: [Soft], no focal tenderness to palpation RECTAL: no hemorrhoids; grossly brown stool faintly hemoccult positive EXT: Normal range of motion SKIN: [No rashes or lesions.] NEURO: [Alert and oriented x 3. No gross focal sensory or strength deficits.] PSYCH: Normal affect Course Vital Signs Vital signs: Vital Signs Temperature 97.9 F 07/19/24 11:14 Pulse Rate 89 07/19/24 11:14 Respiratory Rate 16 07/19/24 11:14 Blood Pressure 126/66 07/19/24 11:14 Pulse Oximetry 97 07/19/24 11:14 Temperature 97.9 F 07/19/24 11:14 Pulse Rate 60 07/19/24 13:03 Respiratory Rate 13 07/19/24 13:03 Blood Pressure 132/78 07/19/24 12:31 Pulse Oximetry 95 07/19/24 13:03 MDM - Abdominal Pain MDM Narrative Medical decision making narrative: Yesterday patient started noticing some abdominal cramping, and loose stools, and noticed some dark blood in her stool. Some slight nausea also. Never had history of this in the past, no prior colonoscopy On exam she does appear comfortable, abdomen soft without any focal tenderness, she is Hemoccult positive with grossly brown stool. She is given IV Zofran, morphine, I did obtain labs and a CT. She does have elevated white blood cells, CT showing signs of colitis. On re-evaluation, she feels much better, abdomen soft, no new tenderness, nausea resolved, no further episodes of emesis here, she would like to go home at this time and I feel this is quite reasonable, I will put her on antibiotics and give her prescriptions for pain medication, and have her follow-up gastroenterology for colonoscopy for further workup. Patient agreeable to this plan. I did let her know she can always return to the ER if she feels worse or wants be admitted. Lab Data 07/19/24 11:31 07/19/24 11:32 Labs: Lab Results 07/19/24 07/19/24 Range/Units 11:31 11:32 WBC 17.0 H (4.5-10.0) K/mm3 RBC 4.89 (4.2-5.4) M/mm3 Hgb 14.2 (12.0-15.0) g/dL Hct 43.7 (37.0-47.0) % MCV 89.4 (80-100) fl MCH 29.0 (26-34) pg MCHC 32.5 (32-36) g/dl RDW 13.2 (11.5-14.5) % Plt Count 286 (150-375) k/mm3 MPV 10.4 (7.4-10.4) fl Immature Gran % (Auto) 0.5 (0-0.5) % Neut % (Auto) 82.1 H (45.5-73.1) % Lymph % (Auto) 12.0 L (18.3-44.2) % [place] % (Auto) 4.7 (2.6-8.5) % Eos % (Auto) 0.5 (0-4.4) % Baso % (Auto) 0.2 (0.2-1.2) % Lymph # (Auto) 2.04 (0.9-3.2) K/mm3 [place] # (Auto) 0.8 H (0.1-0.6) K/mm3 Eos # (Auto) 0.1 (0-0.3) K/mm3 Baso # (Auto) 0.0 (0.0-0.1) K/mm3 Abs Immat Gran (auto) 0.08 H (0.00-0.031) K/mm3 Absolute Neuts (auto) 13.9 H (1.3-6.7) K/mm3 Absolute Nucleated RBC 0.000 (0.0-0.012) K/mm3 Nucleated RBC % 0.0 (0.0-0.2) % Sodium 139 (137-145) mmol/L Potassium 3.6 (3.4-5.0) mmol/L Chloride 103 (98-107) mmol/L Carbon Dioxide 26 (22-30) mmol/L Anion Gap 10 (4-12) mmol/L BUN 12 (7-17) mg/dL Creatinine 0.81 (0.7-1.0) mg/dL Estim Creat Clear Calc 76 ml/min Estimated GFR > 60 (59 - ) Glucose 98 (65-110) mg/dL Calcium 9.1 (8.4-10.2) mg/dL Total Bilirubin 0.6 (0.2-1.3) mg/dL AST 22 (14-36) U/L ALT 23 (6-35) U/L Alkaline Phosphatase 61 (38-126) U/L Total Protein 8.0 (6.3-8.2) g/dL Albumin 4.5 (3.5-5.1) g/dL Imaging Data Radiologist's impression: ITS Impressions Abdomen/Pelvis CT 07/19/24 12:53 IMPRESSION: 1. Abnormal thickening of the descending and proximal sigmoid colon with pericolonic stranding, suspicious for colitis, most likely infectious/inflammatory, although ischemic colitis not excluded. Discharge Plan Discharge Clinical Impression: Colitis Patient Disposition: Home Condition: Stable Instructions: Antibiotic Form, Colitis (ED) Additional Instructions: Please follow-up with the swamper, take medications as prescribed, come back if your pain gets worse or for any other issues. Patient Language: Samoan Prescriptions: New amoxicillin-pot clavulanate 875-125 mg tablet 1 tablet PO Q12H Qty: 10 0RF dicyclomine 20 mg tablet 20 mg PO TID PRN (Reason: abdominal pain) Qty: 30 0RF ondansetron 4 mg tablet,disintegrating 4 mg PO Q8H PRN (Reason: nausea and vomiting) Qty: 10 0RF No Action hydrochlorothiazide 12.5 mg capsule 12.5 mg PO DAILY Ultra CoQ10 75 mg capsule 75 mg PO DAILY Complete Multivitamin Tablet 1 tablet PO DAILY escitalopram oxalate 20 mg tablet 20 mg PO DAILY cholecalciferol (vitamin D3) 10 mcg (400 unit) capsule 10 mcg PO DAILY lisinopril 20 mg tablet 20 mg PO DAILY bupropion HCl [Wellbutrin SR] 150 mg tablet sustained-release 12 hr 150 mg PO DAILY Follow-up/Referrals: Dylon Moses MD [Physician] - 2 Days UNKNOWN,DOCTOR [Primary Care Provider] -
[2024-07-19] MEDS: MORPHINE SULFATE (*CRX) 4 MG/ML INJ IV PUSH (11:43)
[2024-07-19] MEDS: ONDANSETRON INJ 4 MG/2 ML VIAL IV PUSH (11:43)
[2024-07-19 11:47] LABS: Alanine Aminotransferase 23 U/L (6-35); Albumin Level 4.5 g/dL (3.5-5.1); Alkaline Phosphatase 61 U/L (38-126); Anion Gap 10 mmol/L (4-12); Aspartate Amino Transferase 22 U/L (14-36); Bilirubin,Total 0.6 mg/dL (0.2-1.3); Blood Urea Nitrogen 12 mg/dL (7-17); Calcium 9.1 mg/dL (8.4-10.2); Carbon Dioxide 26 mmol/L (22-30); Chloride 103 mmol/L (98-107); Estimated CRCL calculation 76 ml/min; Estimated Glomerular Filt Rate > 60; Glucose 98 mg/dL (65-110); Potassium 3.6 mmol/L (3.4-5.0); Sodium 139 mmol/L (137-145)
--- OUTSIDE RECORDS SUMMARY | 2024-07-19 11:56 | XMS_ITS | Clinical Summary ---
Author Organization Address [address] [place] [address] Care Team Providers Care Resident Doctor Name Role Phone Unavailable Primary Care Provider Unavailabl e Immunizations Immunization Administration Dates Next Due Covid-19, Mrna, Lnp-s, PF, 5 0 mcg/0.25 mL dose (Moderna) 04/05/2021 Social History Tobacco Use Types Packs/Day Years Used Date Smoking Tobacco: Never Assessed Comments Unknown Sex and Gender Information Value Date Recorded Sex Assigned at Not on file Legal Sex Female 4:18 PM SLIP COVER OPERATOR Gender Identity Not on file Sexual Orientation [...]
--- OUTSIDE RECORDS SUMMARY | 2024-07-19 11:56 | XMS_ITS | Encounter Summary ---
Author Organization [facility] Address [address] [place] [address] Care Team Providers Care Supervisor Tile And Mottle Name Role Phone [facility] Provider + Encounter Details Date Type Department Care Team (Late st Contact Info) Description 03/19/2024 [employer] Message Enc [facility] Family & Internal Medicine [facility] [address] [place] [phone] Brii Maurer FNP-DARRYN [id number] [place] [address], [address] [place] [address] Follow up on Elicia. Social [...] Sex Assigned at Female 05/29/2024 11:45 AM LINOLEUM LAYER APPRENTICE Legal Sex Female 8:20 PM CDT Gender Identity Female 05/29/2024 11:45 AM LINOLEUM LAYER APPRENTICE Sexual Orientation Not on file documented as [...] know and we can adjust medications accordingly. LEUM LAYER APPRENTICE * Jolene Montoya RN - 03/20/2024 9:12 AM CST Please review medication name. LEUM LAYER APPRENTICE * NEYMAR Herrera - 03/19/2024 4:16 PM [...] mean Addyi? Or the pharmaceutical company [employer]? LEUM LAYER APPRENTICE * Jolene Montoya RN - 03/19/2024 2:26 PM CST Please advise. LEUM LAYER APPRENTICE documented in this encounter Plan of Treatment Upcoming Encounters Date Type Department Care Team (Late st Contact Info) Description 08/20/2024 7:40 AM CDT Office Visit [facility] Family & Internal Medicine [address] [address] Brii Maurer FNP-DARRYN [address], [address] [place] [address] documented as of this encounter Visit Diagnoses Not on filedocumented in this encounter Additional Health Concerns Assessment Noted Time PHQ-9 Depression Total Score: 3 02/03/20 24 11:07 AM LINOLEUM LAYER APPRENTICE documented as of this encounter Care Teams Supervisor Tile And Mottle Relationship Specialty Start Date End Date Brii Maurer FNP-DARRYN [address], [address] [place] [address] PCP - General Nurse Practitioner Family 11/14/22 documented as of this encounter
--- OUTSIDE RECORDS SUMMARY | 2024-07-19 11:56 | XMS_ITS | Encounter Summary ---
Author Organization [facility] Address [address] [place] [address] Care Team Providers Care Bag Shaker Name Role Phone Brii Maurer [facility] Primary Care Provider + Encounter Details Date Type Department Care Team (Late st Contact Info) Description 04/09/2023 [employer] Message [address] [address] [facility] Provider results Social History Tobacco Use Types [...] Sex Assigned at Female 05/29/2024 11:45 AM STRIP MINE SUPERVISOR Legal Sex Female 8:20 PM CDT Gender Identity Female 05/29/2024 11:45 AM STRIP MINE SUPERVISOR Sexual Orientation Not on file documented as of this encounter Plan of Treatment Upcoming Encounters Date Type Department Care Team (Late st Contact Info) Description 08/20/2024 7:40 AM CDT Office Visit [facility] Medical Group Family & Internal Medicine [address] [address] Brii Maurer FNP- [address], [address] [place] [address] documented as of this encounter Visit Diagnoses Not on filedocumented in this encounter Additional Health Concerns Assessment Noted Time PHQ-9 Depression Total Score: 2 08/26/19 22 9:05 AM CDT documented as of this encounter Care Teams Bag Shaker Relationship Specialty Start Date End Date Brii Maurer [facility]- [address], [address] [place] [address] PCP - General Nurse Practitioner Family 11/14/22 documented as of this encounter
--- OUTSIDE RECORDS SUMMARY | 2024-07-19 11:56 | XMS_ITS | Clinical Summary ---
Author Organization [email or web address] [id number] [facility] Address [address] [place] [address] Care Team Providers Care Drill Press Set Up Operator Radial Name Role Phone Unavailable Primary Care Provider [...] Comments Blood Pressure 106/64 02/03/2024 4:12 PM VERIFICATION REP Pulse - - Temperature - - Respiratory Rate - - Oxygen Saturation - - Inhaled Oxygen Concentration - - Weight 91.7 kg (202 lb 3.2 oz) 02/03/2024 4:12 P M VERIFICATION REP Height 170.2 cm (5' 7 ) 02/03/2024 4:12 PM VERIFICATION REP Body Mass Index 31.67 02/03/2024 4:12 PM VERIFICATION REP Plan of Treatment Health Maintenance Due Date [...] 5 season) 2023 04/05/2021, 08/09/2020, 07/12/2020 Insurance [facility] CHOICE [id number]
--- OUTSIDE RECORDS SUMMARY | 2024-07-19 11:56 | XMS_ITS | Encounter Summary ---
Author Organization [facility] Address [address] [place] [address] Care Team Providers Care Ship Superintendent Name Role Phone Brii Maurer [facility] Primary Care Provider + Encounter Details Date Type Department Care Team (Late st Contact Info) Description 06/02/2024 [employer] Message Enc [facility] Medical [facility] Family & Internal [facility] [address] [place] [phone] [facility] Provider reschedule appointment Social History Tobacco Use [...] Sex Assigned at Female 05/29/2024 11:45 AM FINANCIAL INVESTMENT MANAGER Legal Sex Female 8:20 PM CDT Gender Identity Female 05/29/2024 11:45 AM FINANCIAL INVESTMENT MANAGER Sexual Orientation Not on file documented as of this encounter Plan of Treatment Upcoming Encounters Date Type Department Care Team (Late st Contact Info) Description 08/20/2024 7:40 AM CDT Office Visit [facility] Family & Internal [address] [address] Brii Maurer FNP- [address], [address] [place] [address] documented as of this encounter Visit Diagnoses Not on filedocumented in this encounter Additional Health Concerns Assessment Noted Time PHQ-9 Depression Total Score: 2 05/29/19 25 12:27 PM FINANCIAL INVESTMENT MANAGER documented as of this encounter Care Teams Ship Superintendent Relationship Specialty Start Date End Date Brii Maurer HAND II BLOCKER- [address], [address] [place] [address] PCP - General Nurse Practitioner Family 11/14/22 documented as of this encounter
--- OUTSIDE RECORDS SUMMARY | 2024-07-19 11:56 | XMS_ITS | Encounter Summary ---
Author Organization [facility] Address [address] [place] [address] Care Team Providers Care Lollypop Machine Operator Name Role Phone Britany ObandoNP Primary Care Provider [phone]- [phone] Brii Maurer CAN CLOSING MACHINE TENDER- Primary Care Provider + Encounter Details Date Type Department Care Team (Late st Contact Info) Description 01/27/2021 [place] [employer] Message Enc [facility] Family & Internal Medicine [facility] [address] [place] [phone] [facility], [facility] Provider lisinovivian Social History Tobacco Use Types [...] Sex Assigned at Female 05/29/2024 11:45 AM MAP CLERK Legal Sex Female 8:20 PM CDT Gender Identity Female 05/29/2024 11:45 AM MAP CLERK Sexual Orientation Not on file documented as of this encounter Plan of Treatment Upcoming Encounters Date Type Department Care Team (Late st Contact Info) Description 08/20/2024 7:40 AM CDT Office Visit [facility] Family & Internal Medicine [facility] [address] [place] [address] Brii Maurer, CAN CLOSING MACHINE TENDER-BC [address] [facility] [place], [address] [place] [address] documented as of this encounter Visit Diagnoses Not on filedocumented in this encounter Care Teams Lollypop Machine Operator Relationship Specialty Start Date End Date Britany Obando APNP [address] [place] [address] [place] [address] PCP - General Nurse Practitioner Family 09/29/1910/30 Brii Maurer, CAN CLOSING MACHINE TENDER-BC [address] [facility] [place], [address] [place] [address] PCP - General Nurse Practitioner Family 11/14/22 documented as of this encounter
--- OUTSIDE RECORDS SUMMARY | 2024-07-19 11:56 | XMS_ITS | Clinical Summary ---
Author Organization [facility] Address [address] [place] [address] Care Team Providers Care Sales Project Engineer Name Role Phone LibertadBrii juan Estelita [facility] Primary Care Provider + Allergies No known [...] Calcium Carb-Cholecalcif alvaro 500-10 MG-MCG Tab Active Bantam-3 Fatty Acids (FISH OIL) 500 MG capsule [...] Department Care Team Description 06/26/2024 MyChart Message [facility] Family & Internal Medicine [address] [phone] Brii Maurer, SECURITY INTELLIGENCE ANALYST-BC Wegovy 06/10/2024 MyChart Message [facility] Family & Internal Medicine [address] [phone] Brii Maurer SECURITY INTELLIGENCE ANALYST-BC Wegovy refill 06/02/2024 MyChart Message Enc [facility] & Internal [address] [phone] [facility] Provider reschedule appointment 05/29/2024 11:40 AM CAR TESTER Office Visit [facility] Internal [address] [phone] Brii Maurer FNP-DARRYN Follow Up (F/u for Wegovy ) 05/29/2024 Travel 05/22/2024 Orders Only [address] [phone] Brii Maurer FNP-DARRYN 05/16/2024 Scan HEALTH INFO SRVCS Scanned, Doc Med Group 05/11/2024 MyChart Message Enc [facility] Internal [address] [phone] Brii Maurer SECURITY INTELLIGENCE ANALYST-BC Wegovy Increase from Last 3 Months Immunizations Immunization Administration Dates Next Due Fluzone 6 Months+ Quad (0.5 mL Prefilled Syringe) 03/02/2019 Hepatitis B (Generic: Adult) 11/09/2015,06/10/19 16,05/11/2015 Hepatitis B (Recombivax Hb 10 Mcg) 11/09/2015,,05/11/2015 Influenza (Generic) 04/24/2021(Deferred: Patient Refused),01/02/2018 Influenza Adult (Generic) 01/02/2018,01/20/2015 MODERNA COVID-19 (12+) MRNA, LNP-S, PF, 100 MCG/ 0.5 ML DOSE 08/09/2020,07/12/2020 MODERNA COVID-19 (ENVIRONMENTAL ISSUES INSTRUCTOR ALMAS FANG), MRNA, LNP-S, PF, 50 MCG/ [...] Sex Assigned at Female 05/29/2024 11:45 AM CAR TESTER Legal Sex Female 8:20 PM CDT Gender Identity Female 05/29/2024 11:45 AM CAR TESTER Sexual Orientation Not on file Last Filed Vital Signs Vital Sign Reading Time Taken Comments Blood Pressure 120/88 05/29/2024 11:46 AM CAR TESTER Pulse 92 05/29/2024 11:46 AM CAR TESTER Temperature 36.4 C (97.5 F) 05/29/2024 11:46 AM CAR TESTER Respiratory Rate 16 05/29/2024 11:46 AM CAR TESTER Oxygen Saturation 98% 05/29/2024 11:46 AM CAR TESTER Inhaled Oxygen Concentration - - Weight 83 kg (183 lb) 05/29/2024 11:46 AM CAR TESTER Height 170.2 cm (5' 7 ) 05/29/2024 11:46 AM CAR TESTER Body Mass Index 28.66 05/29/2024 11:46 AM CAR TESTER Plan of Treatment Upcoming Encounters Date Type Department Care Team (Late st Contact Info) Description 08/20/2024 7:40 AM CDT Office Visit [facility] Medical Group Family & Internal Medicine [facility] [address] [place] [phone] Brii Maurer, SECURITY INTELLIGENCE ANALYST-BC [address] [place] [address], [address] [place] [address] Health Maintenance Due Date Last Done Comments [...] FIT/FOBT (1 Year) Discontinued 05/04/2020 PHQ-2 (Physician [place]) Completed 05/29/2024 Meningococcal B Vaccine Aged Out [...] to Health Maintenance Insurance [employer] Care Teams Sales Project Engineer Relationship Specialty Start Date End Date Brii Maurer, SECURITY INTELLIGENCE ANALYST- [address], [address] [place] [address] PCP - General Nurse Practitioner Family 11/14/22
--- OUTSIDE RECORDS SUMMARY | 2024-07-19 11:56 | XMS_ITS | Encounter Summary ---
Author Organization [facility] Address [address] [place] [address] Care Team Providers Care Dip Brazier Name Role Phone Siria Vega NP Primary Care Provider Britany Jones APNP Primary Care Provider +1- [phone] Brii Maurer AMMUNITION ASSEMBLY II LABORER- Primary Care Provider + Encounter Details Date Type Department Care Team (Latest Contact Info) Description 02/04/2018 Abstract [facility] Medical Group Prashant Lin MD Social History Tobacco Use Types Packs/Day Years Used Date Smoking Tobacco: Never Assessed Comments Unknown Sex and Gender Information Value Date Recorded Sex Assigned at Female 05/29/2024 11:45 AM CIVIL LAWYER Legal Sex Female 8:20 PM CDT Gender Identity Female 05/29/2024 11:45 AM CIVIL LAWYER Sexual Orientation Not on file documented as of this encounter Plan of Treatment Upcoming Encounters Date Type Department Care Team (Late st Contact Info) Description 08/20/2024 7:40 AM CDT Office Visit [facility] Medical Group Family & Internal Medicine [facility] [address] [place] [phone] Brii Maurer, AMMUNITION ASSEMBLY II LABORER-[address], [address] [place] [address] documented as of this encounter Visit Diagnoses Not on filedocumented in this encounter Care Teams Dip Brazier Relationship Specialty Start Date End Date Siria Vega NP PCP - General Nurse Practitioner Family 03/28/1809/27/ 0 Britany Obando APNP [address] [facility] [address] [place] [address] PCP - General Nurse Practitioner Family 09/29/[birth year]10/30 Brii Maurer, AMMUNITION ASSEMBLY II LABORER- [address] [facility] [address] [place] [phone] PCP - General Nurse Practitioner Family 11/14/22 documented as of this encounter
--- OUTSIDE RECORDS SUMMARY | 2024-07-19 11:56 | XMS_ITS | Encounter Summary ---
Author Organization [facility] Address [address] [place] [address] Care Team Providers Care Rn Or Lpn Name Role Phone Britany Obando Primary Care Provider [phone]- [phone] Brii Maurer PILOT PLANT OPERATOR HELPER- Primary Care Provider + Encounter Details Date Type Department Care Team (Late st Contact Info) Description 05/13/[address] [facility] [address] [place] [address] [employer], [facility] Provider lab results Social History Tobacco Use [...] Sex Assigned at Female 05/29/2024 11:45 AM BLACK TOP PAVER OPERATOR Legal Sex Female 8:20 PM CDT Gender Identity Female 05/29/2024 11:45 AM BLACK TOP PAVER OPERATOR Sexual Orientation Not on file COVID-19 Exposure Response Date Recorded In the last month, have you been in contact with someone who was confirmed or suspected to have Coronavirus / COVID-19? No / Unsure 04/29/2020 12:16 PM BLACK TOP PAVER OPERATOR documented as of this encounter Plan of Treatment Upcoming Encounters Date Type Department Care Team (Late st Contact Info) Description 08/20/2024 7:40 AM CDT Office Visit [facility] Medical Group Family & Internal Medicine - [place] [address] [place] [phone] Brii Maurer FNP-BC [address] [facility] [place], [address] [place] [address] documented as of this encounter Visit Diagnoses Not on filedocumented in this encounter Care Teams Rn Or Lpn Relationship Specialty Start Date End Date Britany Obando APNP [address] [address] PCP - General Nurse Practitioner Family [birth year]/1910/30 Brii Maurer FNP-DARRYN [address] [facility] [place], [address] [place] [address] PCP - General Nurse Practitioner Family 11/14/22 documented as of this encounter
--- OUTSIDE RECORDS SUMMARY | 2024-07-19 11:56 | XMS_ITS | Encounter Summary ---
Author Organization [facility] Address [address] [place] [address] Care Team Providers Care Engineering Model Maker Name Role Phone Brii Maurer [facility] Primary Care Provider + Encounter Details Date Type Department Care Team (Late st Contact Info) Description 04/02/2023 [employer] Message Enc [facility] Medical Group Family & Internal Medicine [facility] [address] [place] [phone] Brii Maurer, [facility] [address] [place] [address], [address] [place] [address] Dizziness with medication Social History [...] Sex Assigned at Female 05/29/2024 11:45 AM COMMISSION BROKER Legal Sex Female 8:20 PM CDT Gender Identity Female 05/29/2024 11:45 AM COMMISSION BROKER Sexual Orientation Not on file documented as of this encounter Progress Notes * Jolene Montoya RN - 04/10/2023 10:57 AM CST Pt made aware and v/u. She said the dizziness started end of March before the UTI. She did stop the Venlafaxine and went back to Lexapro 10mg daily. Dizziness has improved since switching. UTI is resolving. ISSION BROKER * Jolene Montoya RN - 04/08/2023 12:18 PM CST Please advise. ISSION BROKER documented in this encounter Plan of Treatment Upcoming Encounters Date Type Department Care Team (Late st Contact Info) Description 08/20/2024 7:40 AM CDT Office Visit [facility] Medical Group Family & Internal Medicine [address] [phone] Brii Maurer FNP-BC [address] [place] [address] documented as of this encounter Visit Diagnoses Not on filedocumented in this encounter Additional Health Concerns Assessment Noted Time PHQ-9 Depression Total Score: 2 08/26/19 22 9:05 AM CDT documented as of this encounter Care Teams Engineering Model Maker Relationship Specialty Start Date End Date Brii Maurer FNP-BC [address] [place] [address] PCP - General Nurse Practitioner Family 11/14/22 documented as of this encounter
--- OUTSIDE RECORDS SUMMARY | 2024-07-19 11:56 | XMS_ITS | Encounter Summary ---
Author Organization [facility] Address [address] [place] [address] Care Team Providers Care Superintendent Pipelines Name Role Phone Brii Maurer [facility] Primary Care Provider + Encounter Details Date Type Department Care Team (Late st Contact Info) Description 06/10/2024 [employer] Message Enc [facility] Medical Group Family & Internal Medicine [facility] [address] [place] [phone] Brii Maurer, [facility] [address] [place] [address], [address] [place] [address] Wegovy refill Social History Tobacco [...] Sex Assigned at Female 05/29/2024 11:45 AM METHODS ENGINEER Legal Sex Female 8:20 PM CDT Gender Identity Female 05/29/2024 11:45 AM METHODS ENGINEER Sexual Orientation Not on file documented as of this encounter Plan of Treatment Upcoming Encounters Date Type Department Care Team (Late st Contact Info) Description 08/20/2024 7:40 AM CDT Office Visit [facility] Medical Group Family & Internal Medicine [facility] [address] [place] [address] Brii Maurer FNP-BC [address] [facility], [address] [address] documented as of this encounter Visit Diagnoses Not on filedocumented in this encounter Additional Health Concerns Assessment Noted Time PHQ-9 Depression Total Score: 2 05/29/19 25 12:27 PM METHODS ENGINEER documented as of this encounter Care Teams Superintendent Pipelines Relationship Specialty Start Date End Date Brii Maurer FNP-BC [address] [facility], [address] [address] PCP - General Nurse Practitioner Family 11/14/22 documented as of this encounter
--- OUTSIDE RECORDS SUMMARY | 2024-07-19 11:56 | XMS_ITS | Encounter Summary ---
Author Organization [facility] Address [address] [place] [address] Care Team Providers Care Pediatric Neuropsychologist Name Role Phone Britany Obando Primary Care Provider +1- [phone] [facility] Primary Care Provider + Encounter Details Date Type Department Care Team (Late st Contact Info) Description 05/23/[address] [facility] Medical Group Family & Internal Medicine [facility] [address] [place] [address] Britany Obando APNP [address] [address] RE: Test Results Social History [...] Sex Assigned at Female 05/29/2024 11:45 AM SHEET FOLDER Legal Sex Female 8:20 PM CDT Gender Identity Female 05/29/2024 11:45 AM SHEET FOLDER Sexual Orientation Not on file COVID-19 Exposure Response Date Recorded In the last month, have you been in contact with someone who was confirmed or suspected to have Coronavirus / COVID-19? No / Unsure 05/19/2020 9:05 AM SHEET FOLDER documented as of this encounter Progress Notes * Regina Prieto NP - 05/23/2020 5:03 PM CST What test results.? T FOLDER * Jolene Montoya RN - 05/23/2020 4:20 PM CST Please advise T FOLDER documented in this encounter Plan of Treatment Upcoming Encounters Date Type Department Care Team (Late st Contact Info) Description 08/20/2024 7:40 AM CDT Office Visit [facility] Medical Group Family & Internal Medicine [address] [phone] Brii Maurer FNP-BC [address] [place] [address] documented as of this encounter Visit Diagnoses Not on filedocumented in this encounter Care Teams Pediatric Neuropsychologist Relationship Specialty Start Date End Date Britayn Obando APNP [address] [place] [address] PCP - General Nurse Practitioner Family [birth year]/29/1910/30 Brii Maurer FNP-DARRYN [address] [place] [address], [address] [address] PCP - General Nurse Practitioner Family 11/14/22 documented as of this encounter
--- OUTSIDE RECORDS SUMMARY | 2024-07-19 11:56 | XMS_ITS | Encounter Summary ---
Author Organization [facility] Address [address] [place] [address] Care Team Providers Care Chemical Cell Changer Name Role Phone Britany Obando Primary Care Provider +1 [phone] Brii Maurer MORTGAGE OR LOAN UNDERWRITER- Primary Care Provider + Encounter Details Date Type Department Care Team (Late st Contact Info) Description 06/29/2020 [employer] [facility] Patient Accounts [address] [place] [address] [email or web address] Provider RE: Account [phone] Social History Tobacco Use Types Packs/Day Years [...] Sex Assigned at Female 05/29/2024 11:45 AM COMMUNITY ENGAGEMENT MANAGER Legal Sex Female 8:20 PM CDT Gender Identity Female 05/29/2024 11:45 AM COMMUNITY ENGAGEMENT MANAGER Sexual Orientation Not on file documented as of this encounter Plan of Treatment Upcoming Encounters Date Type Department Care Team (Late st Contact Info) Description 08/20/2024 7:40 AM CDT Office Visit [facility] Medical Group Family & Internal Medicine [address] [phone] Brii Maurer FNP-BC [address] [facility], [address] [place] [address] documented as of this encounter Visit Diagnoses Not on filedocumented in this encounter Care Teams Chemical Cell Changer Relationship Specialty Start Date End Date Britany Obando APNP [address] [place] [address] [place] [address] PCP - General Nurse Practitioner Family 09/29/1910/30 Brii Maurer, MORTGAGE OR LOAN UNDERWRITER- [address] [facility], [address] [place] [address] PCP - General Nurse Practitioner Family 11/14/22 documented as of this encounter
--- OUTSIDE RECORDS SUMMARY | 2024-07-19 11:56 | XMS_ITS | Encounter Summary ---
Author Organization [facility] Address [address] [place] [address] Care Team Providers Care Fare Register Repairer Name Role Phone Gary Siria [employer] [employer] Primary Care Provider Britany [place] APNP Primary Care Provider +[phone]- [phone] Brii Maurer INSECT CONTROL INSPECTOR- Primary Care Provider + Encounter Details Date Type Department Care Team (Late Contact Info) Description 05/26/2018 ASSEMBLY TECHNICIAN ONLY [facility] Medical Group Priority Care - [address] [place] [address] Scanned, Documents Social History Tobacco Use Types Packs/Day Years Used Date Smoking Tobacco: Never Assessed Comments Unknown Sex and Gender Information Value Date Recorded Sex Assigned at Female 05/29/2024 11:45 AM BACKUP ADMINISTRATIVE COORDINATOR Legal Sex Female 8:20 PM CDT Gender Identity Female 05/29/2024 11:45 AM BACKUP ADMINISTRATIVE COORDINATOR Sexual Orientation Not on file documented as of this encounter Progress Notes * Zscanned, Documents - 05/26/2018 12:00 AM CST PUMA SOLER MD: ACCT: [id number] ADMIT/SERVICE DATE: 02/14/18 DISCHARGE DATE: 03/18/18 : 1970 PT TYPE: DIS RCR SEX: F ORD SITE: [facility] CHART DOCUMENT REHABILITATION DISCHARGE SUMMARY THIS PATIENT WAS SEEN FROM 01/10/2018 THROUGH 02/18/18 FOR A TOTAL OF EIGHT VISITS. REASON FOR DISCONTINUATION OF SERVICES: THIS PATIENT CALLED ON 02/18/18 TO CANCEL ALL APPOINTMENTS DUE TO HBT-BF-RHKPAT COSTS. CURRENT PHYSICAL/FUNCTIONAL STATUS: WE WERE UNABLE [...] P.T. 05/26/2018 04:10 P CI/ JOB NO: [id number] DOC NO: [id number] 05/26/2018 05/26/2018 03:24 P CC: UP ADMINISTRATIVE COORDINATOR documented in this encounter Plan of Treatment Upcoming Encounters Date Type Department Care Team (Late st Contact Info) Description 08/20/2024 7:40 AM CDT Office Visit [facility] Medical Group Family & Internal Medicine [address] [address] Brii Maurer, [facility]-[address] [phone] documented as of this encounter Visit Diagnoses Not on filedocumented in this encounter Care Teams Fare Register Repairer Relationship Specialty Start Date End Date Siria Vega NP PCP - General Nurse Practitioner Family 03/28/18 0 Britany Obando APNP [address] [place] [id number] PCP - General Nurse Practitioner Family 09/29/1910/30 Brii Maurer, [facility]- [address], [address] [place] [address] PCP - General Nurse Practitioner Family 11/14/22 documented as of this encounter
--- OUTSIDE RECORDS SUMMARY | 2024-07-19 11:56 | XMS_ITS | Encounter Summary ---
Author Organization [facility] Address [address] [place] [address] Care Team Providers Care Adult Neuropsychologist Name Role Phone Brii Maurer [facility] Primary Care Provider + Encounter Details Date Type Department Care Team (Late st Contact Info) Description 02/13/2024 [place] [place] Message Enc [facility] Medical Group Family & Internal Medicine [facility] [address] [place] [phone] Brii Maurer, [facility] [address] [place] [address], [address] [place] [address] Blood test results Social History [...] Sex Assigned at Female 05/29/2024 11:45 AM SENIOR ENVIRONMENTAL SCIENTIST Legal Sex Female 8:20 PM CDT Gender Identity Female 05/29/2024 11:45 AM SENIOR ENVIRONMENTAL SCIENTIST Sexual Orientation Not on file documented as of this encounter Progress Notes * Sasha Guevara MA - 02/14/2024 11:31 AM CST Called pt with results, pt v/u, see result note OR ENVIRONMENTAL SCIENTIST * NEYMAR Herrera - 02/13/2024 3:56 PM CST See results review. Please let her know not all of her lab work results are back, which is why she had not yet been contacted. OR ENVIRONMENTAL SCIENTIST * Anh Herrmann MA - 02/13/2024 11:32 AM CST Advise? OR ENVIRONMENTAL SCIENTIST documented in this encounter Plan of Treatment Upcoming Encounters Date Type Department Care Team (Late st Contact Info) Description 08/20/2024 7:40 AM CDT Office Visit [facility] Medical Group Family & Internal Medicine [facility] [address] [place] [phone] Brii Maurer FNP-BC [address] [place] [address] documented as of this encounter Visit Diagnoses Not on filedocumented in this encounter Additional Health Concerns Assessment Noted Time PHQ-9 Depression Total Score: 3 02/03/20 24 11:07 AM SENIOR ENVIRONMENTAL SCIENTIST documented as of this encounter Care Teams Adult Neuropsychologist Relationship Specialty Start Date End Date Brii Maurer FNP-BC [address] [place] [address] PCP - General Nurse Practitioner Family 11/14/22 documented as of this encounter
== END 2024-07-19 14:28 | disposition home or self-care (01) ==
PROVIDERS: Emergency Provider Emergency Medicine
DX: K52.9 Noninfective gastroenteritis and colitis, unspecified (principal); I10 Essential (primary) hypertension; F32.A Depression, unspecified; F41.9 Anxiety disorder, unspecified; Z87.891 Personal history of nicotine dependence; Z90.79 Acquired absence of other genital organ(s); Z90.722 Acquired absence of ovaries, bilateral; Z90.711 Acquired absence of uterus with remaining cervical stump; Z90.49 Acquired absence of other specified parts of digestive tract; Z79.899 Other long term (current) drug therapy
CPT/HCPCS: 36415; 74177; 80053; 85025; 96374; 96375; 99284; J2270; J2405; Q9967

== ENCOUNTER 2024-09-04 01:27 | Day surgery (SDC) | payer OTHER, SELFPAY ==
[2024-08-27 15:27] VITALS: BMI 27.4
--- OUTSIDE RECORDS SUMMARY | 2024-09-04 01:30 | XMS_ITS | Clinical Summary ---
Author Organization [facility] [id number] [facility] Address [address] [place] [address] Care Team Providers Care Solutions Executive Cloud Sales Name Role Phone Unavailable Primary Care Provider [...] Encounters Date Type Department Care Team Description 08/20/2024 External Device Data ST[facility] ABSTRACTION Provider, Abstract 08/19/2024 External Device Data [facility] ABSTRACTION Provider, Abstract 08/18/2024 External Device Data [facility] ABSTRACTION Provider, Abstract 08/04/2024 External Device Data ST[facility] ABSTRACTION Provider, Abstract 06/17/2024 External Device Data ST[facility] ABSTRACTION Provider, [...] Comments Blood Pressure 106/64 02/03/2024 4:12 PM INTERIOR WIRER Pulse - - Temperature - - Respiratory Rate - - Oxygen Saturation - - Inhaled Oxygen Concentration - - Weight 91.7 kg (202 lb 3.2 oz) 02/03/2024 4:12 P M INTERIOR WIRER Height 170.2 cm (5' 7) 02/03/2024 4:12 PM INTERIOR WIRER Body Mass Index 31.67 02/03/2024 4:12 PM INTERIOR WIRER Plan of Treatment Health Maintenance Due Date Last Done Comments Pre-Diabetes and Diabetes Screening 1970 DTAP/TDAP/TD VACCINES (1 - Tdap) 12/21/1987 HEPATITIS B VACCINES (1 of 3 - 19+ 3-dose series) 12/21/1987 11/09/2015, 06/10/2015, 05/11/2015 COLORECTAL SCREENING 2013 Colorectal Cancer Screening 2013 FIT-DNA Q 3 years 2013 FIT/FOBT Q 1 year 2013 Flex Sig/CT Colonography Q 5 years 2013 ZOSTER VACCINE (1 of 2) 2018 BREAST CANCER SCREENING 08/21/2022 08/22/19 22, 04/29/2020, 04/03/2019, Additional history exists INFLUENZA VACCINE (#1) 2023 03/02/2019 COVID-19 Vaccine (4 - 2023-2 5 season) 2023 04/05/2021, 08/09/2020, 07/12/2020 Insurance [facility] CHOICE [id number]
--- OUTSIDE RECORDS SUMMARY | 2024-09-04 01:30 | XMS_ITS | Clinical Summary ---
Author Organization [facility] Address [address] [place] [address] Care Team Providers Care Alarm Signal Operator Name Role Phone Unavailable Primary Care Provider Unavailabl e Immunizations Immunization Administration Dates Next Due Covid-19, Mrna, Lnp-s, PF, 5 0 mcg/0.25 mL dose (Moderna) 04/05/2021 Social History Tobacco Use Types Packs/Day Years Used Date Smoking Tobacco: Never Assessed Comments Unknown Sex and Gender Information Value Date Recorded Sex Assigned at Not on file Legal Sex Female 4:18 PM [employer] Gender Identity Not on file Sexual Orientation Not on file Plan of Treatment Health Maintenance Due Date Last Done Comments Hepatitis C Virus (HCV) Screening 1970 TdaP Immunization 1970 Colonoscopy 2013 Colorectal Cancer Screening 2013 Cologuard 2018 Immunochemical Fecal Occult Blood 2018 Pneumococcal Immunization (50+ years) (1 of 1 - PCV) 2018 Zoster Immunization (1 of 2) 2018 SARS-COV-2 Immunization ( - season) 2023 04/05/2021, 08/09/2020, 07/12/2020 Influenza Immunization (Season Ended) 2024 03/02/2019, 01/02/2018, 01/02/2018, Additional history exists Respiratory Syncytial Virus (RSV) Immunization (Adult) (1 - 1-dose 75+ series) 12/21/2043 Hepatitis B Immunization Completed 016, 06/10/2015, 05/11/2015 Human Papillomavirus (HPV) Immunization Aged Out No longer eligible based on patient's age to complete this topic Meningococcal Immunization (ACWY) Aged Out No longer eligible based on patient's age to complete this topic Rotavirus Immunization Aged Out No lo nger eligible based on patient's age to complete this topic
[2024-09-04 11:15] VITALS: BP 125/106; PULSE 96; RESP 18; TEMP 36.6; O2SAT 99
[2024-09-04] MEDS: LACTATED RINGERS 1,000 ML 150 ML IV CONT (11:31)
--- NOTE | 2024-09-04 11:35 | WPDANESEPPF ---
Anes - Initial Pre Proc Eval Procedure: Operation Date: 09/04/24 12:30 Proposed Procedures p Esophagogastroduodenoscopy & Colonoscopy - Dylon Moses MD Date/Time: 09/04/24 11:35 Surgeon: Dylon Moses MD Pre Op Diagnosis: GERD Patient Data Age: 53 Gender: F Height: 1.7 m Weight: 78.6 kg Last Vital Signs Temp 36.6 C 09/04/24 11:15 Pulse 96 09/04/24 11:15 Resp 18 09/04/24 11:15 BP 125/106 H 09/04/24 11:15 Pulse Ox 99 09/04/24 11:15 O2 Del Method Room Air 09/04/24 11:15 Allergies Allergy/AdvReac Type Severity Reaction Status Date / Time No Known Allergies Allergy Mild Verified 09/04/24 11:13 Home Medications ?Medication ?Instructions ?Recorded ?Confirmed ?Type cholecalciferol (vitamin D3) 10 10 mcg PO DAILY 04/21/20 09/04/24 History mcg (400 unit) capsule coenzyme Q10 75 mg capsule (Ultra 75 mg PO DAILY 04/21/20 09/04/24 History CoQ10) escitalopram oxalate 20 mg tablet 20 mg PO DAILY 04/21/20 09/04/24 History hydrochlorothiazide 12.5 mg capsule 12.5 mg PO DAILY 04/21/20 09/04/24 History multivitamin,vf-nyyn-wkktorri 1 tablet PO DAILY 04/21/20 09/04/24 History (Complete Multivitamin tablet) bupropion HCl 150 mg tablet,12 hr 150 mg PO DAILY 04/26/23 09/04/24 History sustained-release (Wellbutrin SR) lisinopril 20 mg tablet 20 mg PO DAILY 04/26/23 09/04/24 History dicyclomine 20 mg tablet 20 mg PO TID PRN abdominal pain 07/19/24 08/27/24 Rx #30 tabs ondansetron 4 mg disintegrating 4 mg PO Q8H PRN nausea and 07/19/24 08/27/24 Rx tablet vomiting #10 tabs estradiol 0.05 mg/24 hr weekly 1 patch transdermal WEEKLY 08/27/24 09/04/24 History transdermal patch semaglutide (weight loss) 2.4 2.4 mg subcut WEEKLY 08/27/24 09/04/24 History mg/0.75 mL subcutaneous pen injector (Elicia) Patient hx anesthesia problems: none Family hx anesthesia problems: none Results Review: All pre-operative results and documents have been reviewed as part of the pre-operative evaluation. [facility] Past Medical History Medical History Blood in stool GERD (gastroesophageal reflux disease) Depression Anxiety Vaginal delivery x3 Hypertension Surgical History Surgical History History of cystoscopy 09/07/20 History of bilateral salpingo-oophorectomy 09/07/20 History of laparoscopy 09/07/20, Diagnostic History of hysterectomy, supracervical 09/07/20, abdominal hysterectomy with removal of adnexal cyst for bilateral endometriomas and right paratubal cyst, lysis of adhesions History of cholecystectomy [place] teeth removed Family History Family History Mother Hypertension Father Family history of diabetes mellitus in first degree relative Family history of coronary artery disease Daughter Autism Social History Social History (Updated 09/04/24 @ 11:37 by Juan Carlos Dejesus MD) Smoking packs per day: 0.5 Smoking cigarettes per day: 10.0 Years smoked: 15 Smoking pack-years: 7.50 Smoking status: Current every day smoker Tobacco type: e-cigarettes/vaping Second hand tobacco smoke exposure: No Additional smoking assessment comments: CIGARETTES - QUIT 04/01/10 Alcohol intake: current Alcohol use details: RARE Substance use: current Substance use type: marijuana Last use: 08/22/24 Do You Feel Safe in your Home?: Yes Lack of Transportation: YES Lack of Food: Never True Current Housing: I Have Housing Concerned About Future Housing: No Difficulty Paying Gas/Electric Bills: No Difficulty Paying for Meds: No Currently Unemployed: No Education: Bachelor's Degree Difficulty w/ Childcare or Family Care: No Living arrangements: with family Spiritual care concerns: No Anes - Eval Final PreProcedure Day of Procedure 09/04/24 11:35 Patient weight: overweight Heart: regular rate and rhythm Lungs: clear to auscultation Airway: Mallampati scale class II Neurological: alert and oriented Last oral intake: >/= 8 hours ASA classification: II Emergent: no Anesthetic plan: proceed Anesthesia type and monitoring: general GIVS and standard monitoring Results Review: All pre-operative results and documents have been reviewed as part of the pre-operative evaluation. Informed Consent: The patient's anesthetic plan and its attendant risks and benefits were discussed with the patient/family/POA. Questions were solicited and answers provided to the satisfaction of the patient/family/POA.
--- NOTE | 2024-09-04 12:07 | PM.HPGS ---
History of Present Illness History of Present Illness Consent: Risks, benefits, and alternatives have been discussed and questions answered. Patient agrees to proceed with procedure. Chief complaint: GERD Narrative: Elizabeth Soler is a 53 year old female here for first egd and colonoscopy, h/o gerd and also had colitis Review of Systems Review of Systems: All systems reviewed & are unremarkable except as noted in HPI and below PMFSH Past Medical History Medical History (Updated 09/04/24 @ 12:08 by Dylon Moses MD) History of colitis Blood in stool GERD (gastroesophageal reflux disease) Depression Anxiety Vaginal delivery x3 Hypertension Surgical History Surgical History History of cystoscopy 09/07/20 History of bilateral salpingo-oophorectomy 09/07/20 History of laparoscopy 09/07/20, Diagnostic History of hysterectomy, supracervical 09/07/20, abdominal hysterectomy with removal of adnexal cyst for bilateral endometriomas and right paratubal cyst, lysis of adhesions History of cholecystectomy [place] teeth removed Family History Family History Mother Hypertension Father Family history of diabetes mellitus in first degree relative Family history of coronary artery disease Daughter Autism Social History Social History (Updated 09/04/24 @ 11:37 by Juan Carlos Dejesus MD) Smoking packs per day: 0.5 Smoking cigarettes per day: 10.0 Years smoked: 15 Smoking pack-years: 7.50 Smoking status: Current every day smoker Tobacco type: e-cigarettes/vaping Second hand tobacco smoke exposure: No Additional smoking assessment comments: CIGARETTES - QUIT 04/01/10 Alcohol intake: current Alcohol use details: RARE Substance use: current Substance use type: marijuana Last use: 08/22/24 Do You Feel Safe in your Home?: Yes Lack of Transportation: YES Lack of Food: Never True Current Housing: I Have Housing Concerned About Future Housing: No Difficulty Paying Gas/Electric Bills: No Difficulty Paying for Meds: No Currently Unemployed: No Education: Bachelor's Degree Difficulty w/ Childcare or Family Care: No Living arrangements: with family Spiritual care concerns: No Meds Home Medications and Allergies Home Medications ?Medication ?Instructions ?Recorded ?Confirmed ?Type cholecalciferol (vitamin D3) 10 10 mcg PO DAILY 04/21/20 09/04/24 History mcg (400 unit) capsule coenzyme Q10 75 mg capsule (Ultra 75 mg PO DAILY 04/21/20 09/04/24 History CoQ10) escitalopram oxalate 20 mg tablet 20 mg PO DAILY 04/21/20 09/04/24 History hydrochlorothiazide 12.5 mg capsule 12.5 mg PO DAILY 04/21/20 09/04/24 History multivitamin,vc-ofix-ecyalswd 1 tablet PO DAILY 04/21/20 09/04/24 History (Complete Multivitamin tablet) bupropion HCl 150 mg tablet,12 hr 150 mg PO DAILY 04/26/23 09/04/24 History sustained-release (Wellbutrin SR) lisinopril 20 mg tablet 20 mg PO DAILY 04/26/23 09/04/24 History dicyclomine 20 mg tablet 20 mg PO TID PRN abdominal pain 07/19/24 08/27/24 Rx #30 tabs ondansetron 4 mg disintegrating 4 mg PO Q8H PRN nausea and 07/19/24 08/27/24 Rx tablet vomiting #10 tabs estradiol 0.05 mg/24 hr weekly 1 patch transdermal WEEKLY 08/27/24 09/04/24 History transdermal patch semaglutide (weight loss) 2.4 2.4 mg subcut WEEKLY 08/27/24 09/04/24 History mg/0.75 mL subcutaneous pen injector (Wegovy) Allergies Allergy/AdvReac Type Severity Reaction Status Date / Time No Known Allergies Allergy Mild Verified 09/04/24 11:13 Vital Signs Vital Signs - 24 hr 09/04/24 11:15 Temperature 98 F Pulse Rate 96 Respiratory Rate 18 Blood Pressure 125/106 H Pulse Oximetry 99 Oxygen Delivery Room Air Exam Const: General: comfortable and no acute distress HENMT: Face/Nose/Sinus: Normal nares present Eyes: General: appearance normal, both eyes and all related structures Neck: Neck: no JVD Resp: Auscultation: clear to auscultation bilaterally Cardio: Rate: regular rate Rhythm: regular rhythm GI: Inspection: non-distended GI Palp: Yes Soft to palpation Skin: General skin exam: normal color Neuro: General: gait normal Speech: normal speech Extrem: General: normal to inspection Psych: Mental Status: mental status grossly normal Assessment and Plan Assessment and plan (1) GERD (gastroesophageal reflux disease): Code(s): K21.9 - Gastro-esophageal reflux disease without esophagitis Status: Acute Assessment and Plan: egd with bx (2) History of colitis: Code(s): Z87.19 - Personal history of other diseases of the digestive system Status: Acute Assessment and Plan: resolved colonoscopy since never had one
--- NOTE | 2024-09-04 12:09 | SUR.OPER ---
EGD [id number]. Colonoscopy start time 1210.
--- NOTE | 2024-09-04 12:21 | S_PTH ---
PATIENT: Elizabeth Soler LOC: [facility]#:[id number] AGE/SX: 53/F ROOM: RE09/04/[address]: Dylon Moses MD : 1970 BED: DIS: 09/04/2024 SPEC #: [id number] RECD: 09/04/24 12:56 STATUS: SOHAM RERowena #: [id number] GLORIA: 09/04/24 12:[address]: Dylon Moses DEPT: [facility] Surgical RECD BY: Gauri Matthews ENTERED: 09/04/24 12:56 SP TYPE: Surgical OTHR DR: Brii Maurer, [employer] Tissues: A - Gastric Biopsy B - Colon Polypectomy C - Colon Polypectomy Procedures: Hematoxylin and Eosin Stain Gross and Microscopic Level 4
[2024-09-04 12:24] VITALS: BP 99/64; PULSE 79; RESP 20; O2SAT 100
[2024-09-04 12:34] VITALS: BP 106/68; PULSE 75; RESP 18; O2SAT 100
[2024-09-04 12:44] VITALS: BP 112/72; PULSE 80; RESP 16; O2SAT 98
== END 2024-09-04 13:01 | disposition home or self-care (01) ==
PROVIDERS: PCP Nurse Practitioner Family; Referring Provider Internal Medicine Gastroenterology; Visit Provider Internal Medicine Gastroenterology
PROC: 0DJ08ZZ Inspection of Upper Intestinal Tract, Via Natural or Artificial Opening Endoscopic (ICD-10-PCS; CPT 45378; principal; 2024-09-04 12:30)
DX: Z12.11 Encounter for screening for malignant neoplasm of colon (principal); D12.0 Benign neoplasm of cecum; D12.8 Benign neoplasm of rectum; K64.8 Other hemorrhoids; Z87.19 Personal history of other diseases of the digestive system; K21.9 Gastro-esophageal reflux disease without esophagitis; F17.290 Nicotine dependence, other tobacco product, uncomplicated; F12.90 Cannabis use, unspecified, uncomplicated
CPT/HCPCS: 45385; 43239; 88305; J2003; J2704; J7120